=== PATIENT | male | born 1960 | race African-American/Black ===

== ENCOUNTER → 2016-09-24 | Outpatient (CLI) | payer BC ==
[~2016-09-24] MED LIST: LSNUNK
== END | disposition home or self-care (01) ==
LOC: C.RDSM 13:55
PROVIDERS: ATTEND Physical Medicine & Rehabilitation Sports Medicine
DX: M25.562 Pain in left knee (principal)

== ENCOUNTER 2017-01-26 17:47 | Emergency (ER) | payer BC ==
[~2017-01-26] VITALS: Ht 167.6 cm; Wt 72.4 kg
[2017-01-26 17:59] VITALS: BP 125/82; PULSE 74; TEMP 36.6; O2SAT 95; Ht 167.6 cm; Wt 72.4 kg
[2017-01-26] MEDS ORDERED: GELATIN SPONGE 12-7MM EXT ONE (18:15)
[2017-01-26] MEDS ORDERED: DIPHTHERIA/TETANUS/PERTUSSIS 0.5 ML SYR/VIAL IM. ONE ×2 (18:15→18:45)
--- NOTE | 2017-01-26 23:37 | EMERGENCY ROOM VISIT NOTE ---
ED Visit Note First contact with patient: 18:08 CHIEF COMPLAINT: Finger laceration HISTORY OF PRESENT ILLNESS: This 56-year-old male patient presents to the emergency department after cutting the distal right first finger while trying to cut a bagel about 2 hours ago. The bleeding has stopped. Denies weakness or numbness of the finger. The patient has full range of motion of the fingers. The patient rates the pain as dull and 8/10. The patient denies any other injuries. The patient's tetanus shot is not up to date. REVIEW OF SYSTEMS: A 6 system review of systems was completed with positives and pertinent negatives listed in the HPI. ALLERGIES: No known allergies MEDICATIONS: No chronic medications PMH: Otherwise healthy SOCIAL HISTORY: Lives locally PHYSICAL EXAM: Vital Signs: Reviewed Nurse's notes, vital signs stable. GENERAL : Male, in no acute distress, well developed, well nourished. SKIN: There is a 1.0 avulsion type laceration along the distal aspect of the right first finger. The edges gape apart with traction. There is no foreign material in the wound and it looks clean. There is minimal bleeding. No deep structures such as tendons, bones, or significant blood vessels are seen in the base of the wound. Extension and flexion of the finger is full and strong. Full range of motion of the wrist and other fingers. Capillary refill less than 2 seconds. Normal sensation to light and sharp touch. EMERGENCY DEPARTMENT COURSE: I examined the patient. The wound was copiously irrigated under pressure with sterile saline. The wound was explored and there were no deep structures injured. The laceration was repaired using gel foam in a pressure dressing. The patient tolerated the procedure well. Hemostasis was achieved. The patient is not up to date on his tetanus, but prefers to follow with his primary care physician for this. He refuses tetanus here in the emergency department. The patient should follow with his PCP this week and was given wound care instructions as below. He was otherwise invited back to the ER with any new, worsening, or concerning symptoms. Current/Historical Medications Scheduled Lisinopril (Zestril Unknown Dose), DAILY Allergies Coded Allergies: No Known Allergies (Unverified , 01/26/17) Vital Signs Date Time Temp Pulse Resp B/P Pulse Ox O2 Delivery O2 Flow Rate FiO2 01/26/17 17:59 36.6 74 20 125/82 95 Room Air Medications Administered Medications (Trade) Dose Ordered Sig/Iftikhar Route Start Time Stop Time Status Last Admin Dose Admin Gelatin (Surg[place] Sponge 12-7MM (SMALL)) 1 ea NOW ONCE EXT 01/26/17 18:15 01/26/17 18:16 DC 01/26/17 18:15 1 EA Departure Information Impression Primary Impression: Avulsion of fingertip Dispostion Home / Self-Care Condition GOOD Forms HOME CARE DOCUMENTATION FORM, IMPORTANT VISIT INFORMATION Patient Instructions [facility] Additional Instructions You were seen and evaluated today on an emergency basis only. This is not a substitute for, or an effort to provide, complete comprehensive medical care. It is not possible to recognize and treat all injuries or illnesses in a single emergency department visit. For this reason it is recommended that you followup with your primary care physician to discuss her tetanus status. Remove the dressing after about 48 hours. You may apply a bandage after this for 2 more days. After which please leave it open to the air. Monitor for signs of infection such as redness, warmth, or drainage. If this occurs please seek medical attention. You are welcome to return to the emergency department anytime with new, worsening, or concerning symptoms.
== END 2017-01-26 18:57 | disposition home or self-care (01) ==
LOC: C.EDB 17:49 → C.EDD 18:57
DX: S61.210A Laceration without foreign body of right index finger without damage to nail, initial encounter (principal); W26.0XXA Contact with knife, initial encounter; Y93.G1 Activity, food preparation and clean up; Z79.899 Other long term (current) drug therapy

== ENCOUNTER → 2017-02-04 | Outpatient (CLI) | payer BC | END | disposition home or self-care (01) | LOC: C.RDSM 15:33 | PROVIDERS: ATTEND Physical Medicine & Rehabilitation Sports Medicine | DX: M17.32 Unilateral post-traumatic osteoarthritis, left knee (principal) ==

== ENCOUNTER 2019-11-21 10:31 | Observation (INO) ==
[2019-11-21] MEDS ORDERED: ONDANSETRON INJ 2 MG/ML 2 ML VIAL IV STA (11:02)
[2019-11-21] MEDS ORDERED: MoRPHine SULFATE 4 MG/ML 1 ML CARP\\VIAL IV STA (11:02)
[2019-11-21] MEDS ORDERED: SODIUM CHLORIDE 0.9% 1000ML 1,000 ML IV ONE (11:04)
--- NOTE | 2019-11-21 11:11 | Emergency Department Note ---
History of Present Illness General Chief complaint: Groin Pain Stated complaint: STANGULATED HERNIA Time Seen by Provider: 11/21/19 10:51 History of Present Illness Maximum Pain Intensity: 7 59-year-old male who presents to the emergency department with complaint of progressively worsening left inguinal hernia pain and swelling. The patient reports that he saw Dr. Harp last June for this condition. The patient elected observation with as needed follow-up with Dr. Harp with any persistent pain. The patient reports that over the past few months, the swelling has gotten worse without significant pain, although it was intermittent. The patient reports that he walks every morning, and noticed significant discomfort today while walking. He rates his discomfort a 7 out of 10. The patient denies any nausea or vomiting, abdominal pain, constipation or diarrhea. He denies any urinary symptoms. Home Medications Home Medications Medication Instructions Recorded Confirmed Type amlodipine 5 mg tablet 5 mg PO QAM 08/10/19 11/21/19 History chlorthalidone 25 mg PO DAILY 11/21/19 11/21/19 History naproxen sodium [Aleve] 220 mg PO Q12H PRN 11/21/19 11/21/19 History Allergies Allergy/AdvReac Type Severity Reaction Status Date / Time No Known Allergies Allergy Verified 11/21/19 11:06 Past Med/Surg History Medical History Hypertension Left inguinal hernia Surgical History H/O arthroscopy History of arthroscopic knee surgery Status post osteotomy Social History Preferred Language: Uzbek Communication Ability: Effective marital status: 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 Smoking Status: Never smoker Hx Alcohol Use: Yes Hx Substance Use: No Review of Systems 10 system review was performed and was negative except for pertinent positives and negatives as indicated in history of present illness Physical Exam Vital Signs Vital Signs - 24 hr 11/21/19 10:34 11/21/19 12:00 11/21/19 12:19 Temperature 36.5 C Temperature Source Oral Pulse Rate 76 84 83 Respiratory Rate 17 20 23 Respiratory Effort / Characteristics Non-Labored Spontaneous Respiratory Depth Normal Respiratory Pattern Regular Blood Pressure 133/85 134/90 Blood Pressure Mean 101 96 Blood Pressure Position Sitting Pulse Oximetry 97 Oxygen Delivery Method Room Air Sepsis Recent Fever Within 48 Hours No Sepsis New/Unexplained Change in Mental Status No Sepsis Action Taken by Nursing No Action Required 11/21/19 12:27 11/21/19 13:07 Temperature Temperature Source Pulse Rate 85 Respiratory Rate 18 Respiratory Effort / Characteristics Respiratory Depth Respiratory Pattern Blood Pressure 133/88 105/87 Blood Pressure Mean 98 Blood Pressure Position Pulse Oximetry 94 Oxygen Delivery Method Room Air Sepsis Recent Fever Within 48 Hours Sepsis New/Unexplained Change in Mental Status Sepsis Action Taken by Nursing CONSTITUTIONAL: Healthy and well nourished. Patient appears in moderate discomfort. HEENT: Normocephalic, atraumatic. Pupils equal, round and reactive. No scleral icterus or conjunctival injection. NECK: Full active range of motion without discomfort. LYMPHATICS: No obvious inguinal adenopathy. RESPIRATORY: Clear to auscultation bilaterally with no wheezing, crackles, rhonchi or stridor. CARDIOVASCULAR: Regular rate and rhythm with no murmurs, rubs or gallops. GASTROINTESTINAL: Bowel sounds present in all quadrants. Abdomen is generally soft and nontender to palpation except for the left lower quadrant region. GENITOURINARY: Examination shows a large mass within the left mons. No palpable intrascrotal mass. MUSCULOSKELETAL: Full range of motion of all joints without discomfort. INTEGUMENTARY: No rash or other significant dermatologic conditions noted. HEMATOLOGIC: No ecchymosis or petechiae. PSYCHIATRIC: Positive affect. NEUROLOGIC: No focal neurologic deficits noted. Course Course Patient history and physical exam were performed. Nurse's notes were reviewed. Vital signs were reviewed and were normal. IV access was established, and labs are drawn. The patient was hydrated with a liter of normal saline, and administered IV morphine and Zofran for pain. Review of labs did not show any significant abnormalities. CT of the abdomen and pelvis without contrast shows a large left inguinal hernia without obstruction. The case was discussed with Dr. Rodriguez, ED attending physician, who also evaluated the patient and attempted hernia reduction without success. With worsening pain, the patient was administered IV Dilaudid. At this point, the case was discussed with Dr. Harp, general surgeon on-call, who came to the emergency department for further evaluation, and will be taken the patient for surgical treatment. Please see his dictation for further treatment and final d isposition. Administered Medications Cefazolin Sodium (Ancef 2000mg) 2,000 mg in 15 mls @ 3.75 mls/min IV ONCE ONE Stop: 11/21/19 14:43 Last Admin: 11/21/19 13:59 Dose: 3.75 mls/min Documented by: [id number] Discontinued Medications Hydromorphone HCl (Dilaudid) 1 mg IV NOW STA Stop: 11/21/19 12:09 Last Admin: 11/21/19 12:33 Dose: 1 mg Documented by: [id number] Sodium Chloride (Nss 1000ml) 1,000 mls @ 999 mls/hr IV .Q1H1M ONE Stop: 11/21/19 12:04 Last Infusion: 11/21/19 13:05 Dose: 0 mls/hr Documented by: [id number] Admin: 11/21/19 11:30 Dose: 999 mls/hr Documented by: [id number] Morphine Sulfate (Morphine Sulfate) 4 mg IV NOW STA Stop: 11/21/19 11:03 Last Admin: 11/21/19 11:30 Dose: 4 mg Documented by: [id number] Ondansetron HCl (Zofran) 4 mg IV NOW STA Stop: 11/21/19 11:03 Last Admin: 11/21/19 11:30 Dose: 4 mg Documented by: [id number] Medical Decision Making Medical Records Attestation: I reviewed the patient's medical records. Home Medications Current Medication List: was personally reviewed by me Laboratory Data Attestation: I reviewed the patient's lab results. Result diagrams: 11/21/19 11:30 11/21/19 11:30 Lab Results 11/21/19 11/21/19 11/21/19 Range/Units 11:30 11:30 11:30 WBC 5.35 (4.8-10.8) K/uL RBC 4.75 (4.7-6.1) M/uL Hgb 15.0 (14.0-18.0) g/dL Hct 43.2 (42-52) % MCV 90.9 (80-100) fL MCH 31.6 (25-34) pg MCHC 34.7 (32-36) g/dL RDW Std Deviation 40.6 (36.4-46.3) fL RDW Coeff of Eric 12.2 (11.5-14.5) % Plt Count 197 (130-400) K/uL MPV 11.6 H (7.4-10.4) fL Immature Gran % (Auto) 0.2 % Neut % (Auto) 50.2 % Lymph % (Auto) 28.8 % [place] % (Auto) 6.2 % Eos % (Auto) 14.2 % Baso % (Auto) 0.4 % Immature Gran # (Auto) 0.01 (0.00-0.02) K/uL Neut # (Auto) 2.69 (1.4-6.5) K/uL Lymph # (Auto) 1.54 (1.2-3.4) K/uL [place] # (Auto) 0.33 (0.11-0.59) K/uL Eos # (Auto) 0.76 H (0-0.5) K/uL Baso # (Auto) 0.02 (0-0.2) K/uL Sodium 139 (136-145) mmol/L Potassium (3.5-5.1) mmol/L Chloride 105 (98-107) mmol/L Carbon Dioxide 32 (21-32) mmol/L Anion Gap 3.0 (3-11) BUN 17 (7-18) mg/dl Creatinine 1.00 (0.6-1.4) mg/dl Est Cr Clr Drug Dosing 69.2 ml/min Est GFR ( Amer) 95.1 Est GFR (Non-Af Amer) 82.0 BUN/Creatinine Ratio 16.8 (10-20) Glucose 102 H (70-99) mg/dl Lactate 0.9 (0.4-2.0) mmol/L Calcium 9.2 (8.5-10.1) mg/dl Total Bilirubin 1.3 H (0.2-1) mg/dl AST (15-37) U/L ALT 24 (12-78) U/L Alkaline Phosphatase 69 (45-117) U/L Total Protein 8.0 (6.4-8.2) gm/dl Albumin 3.9 (3.4-5.0) gm/dl Globulin 4.1 H (2.5-4.0) gm/dl Albumin/Globulin Ratio 1.0 (0.9-2) Imaging Data Attestation: I personally reviewed and interpreted this imaging study as follows: My Impression: My interpretation of a CT of the abdomen and pelvis without IV contrast shows evidence for a large left inguinal hernia. No obvious obstructive findings. Radiologist report was also reviewed. Radiologist's Impression: ABDOMEN AND PELVIS CT WITHOUT CONTRAST CT DOSE: 281.75 mGy.cm HISTORY: Left inguinal pain and swelling. L inguinal hernia - possible strangulated TECHNIQUE: Multiaxial CT images of the abdomen and pelvis were performed without contrast. A dose lowering technique was utilized adhering to the principles of ALARA. COMPARISON STUDY: None. FINDINGS: The lung bases are clear. No pneumoperitoneum. No pneumatosis. No suspicious lytic are blastic osseous lesions. The unenhanced liver, gallbladder, spleen, adrenal glands, and pancreas are unremarkable. No renal or ureteral stones. No hydronephrosis. No retroperitoneal lymphadenopathy. Normal caliber abdominal aorta. Tiny fat-containing umbilical hernia. The bladder is unremarkable. Normal appendix. A long segment of the proximal sigmoid colon is seen within the moderate left inguinal hernia. This also trace fluid within the left inguinal hernia. There is suboptimal evaluation for bowel pathology due to the lack of intravenous and oral contrast. However, there is no evidence for bowel obstruction. There are a few colonic diverticula. Questionable mild t hickening of the segment of proximal sigmoid colon within the left inguinal hernia. This could be due to the decompression or developing inflammatory process such as a diverticulitis. Vascular compromise of the bowel loop could also have a similar appearance. Clinical correlation recommended. Normal bladder. IMPRESSION: 1. A long segment of the proximal sigmoid colon is seen within the moderate left inguinal hernia. This also trace fluid within the left inguinal hernia. No evidence for bowel obstruction. 2. Questionable mild thickening of the segment of proximal sigmoid colon within the left inguinal hernia. This could be due to the decompression or developing inflammatory process such as a diverticulitis. Vascular compromise of the bowel loop could also have a similar appearance. Clinical correlation recommended. Blood Pressure Blood Pressure Findings: Normal blood pressure MDM Narrative Patient has a known history of left inguinal hernia that was initially being treated with conservative management. The patient reports that he has had increasing swelling and pain, with abrupt onset of pain while walking this morning. Patient currently does not have any nausea, vomiting or CT studies to suggest bowel obstruction. Impression & Plan Incarcerated left inguinal hernia Discharge Plan Visit Data *Final* Discharge Date/Time: 11/21/19 13:14 Chief Complaint: Groin Pain Stated Complaint: STANGULATED HERNIA ED Provider: Emre Rodriguez ED Midlevel Provider: Srnii Welsh Discharge Problem: Incarcerated left inguinal hernia Patient Disposition: Admitted As Inpatient Discharge Instructions Interventions: ED Discharge Assessment Last Done: 11/21/19 13:07
[2019-11-21 11:41] LABS: Basophils # (auto) 0.02 K/uL (0-0.2); Basophils % (auto) 0.4 %; Eosinophils # (auto) 0.76 K/uL (0-0.5); Eosinophils % (auto) 14.2 %; Hematocrit (blood only) 43.2 % (42-52); Immature Granulocytes # (auto) 0.01 K/uL (0.00-0.02); Immature Granulocytes % (auto) 0.2 %; Lymphocytes # (auto) 1.54 K/uL (1.2-3.4); Lymphocytes % (auto) 28.8 %; Mean Corpuscular Hemoglobin 31.6 pg (25-34); Mean Corpuscular Hgb Conc 34.7 g/dL (32-36); Mean Corpuscular Volume 90.9 fL (80-100); Mean Platelet Volume 11.6 fL (7.4-10.4); Monocytes # (auto) 0.33 K/uL (0.11-0.59); Monocytes % (auto) 6.2 %; Neutrophils # (auto) 2.69 K/uL (1.4-6.5); Neutrophils % (auto) 50.2 %; Platelet Count 197 K/uL (130-400); RDW Coefficient of Variation 12.2 % (11.5-14.5); RDW Standard Deviation 40.6 fL (36.4-46.3); Red Blood Count 4.75 M/uL (4.7-6.1); White Blood Count 5.35 K/uL (4.8-10.8)
--- NOTE | 2019-11-21 11:58 | CT Scan Report ---
ABDOMEN AND PELVIS CT WITHOUT CONTRAST CT DOSE: 281.75 mGy.cm HISTORY: Left inguinal pain and swelling. L inguinal hernia - possible strangulated TECHNIQUE: Multiaxial CT images of the abdomen and pelvis were performed without contrast. A dose lo wering technique was utilized adhering to the principles of ALARA. COMPARISON STUDY: None. FINDINGS: The lung bases are clear. No pneumoperitoneum. No pneumatosis. No suspicious lytic are arleen tic osseous lesions. The unenhanced liver, gallbladder, spleen, adrenal glands, and pancreas are unre markable. No renal or ureteral stones. No hydronephrosis. No retroperitoneal lymphadenopathy. Normal caliber abdominal aorta. Tiny fat-containing umbilical hernia. The bladder is unremarkable. Normal ap pendix. A long segment of the proximal sigmoid colon is seen within the moderate left inguinal hernia . This also trace fluid within the left inguinal hernia. There is suboptimal evaluation for bowel pat hology due to the lack of intravenous and oral contrast. However, there is no evidence for bowel obst ruction. There are a few colonic diverticula. Questionable mild thickening of the segment of proximal sigmoid colon within the left inguinal hernia. This could be due to the decompression or developing inflammatory process such as a diverticulitis. Vascular compromise of the bowel loop could also have a similar appearance. Clinical correlation recommended. Normal bladder. IMPRESSION: 1. A long segment of the proximal sigmoid colon is seen within the moderate left inguinal hernia. Thi s also trace fluid within the left inguinal hernia. No evidence for bowel obstruction. 2. Questionable mild thickening of the segment of proximal sigmoid colon within the left inguinal her joce. This could be due to the decompression or developing inflammatory process such as a diverticulit is. Vascular compromise of the bowel loop could also have a similar appearance. Clinical correlation recommended. ACT 112: Negative or not required by law. Electronically signed by: Juaquin Maher M.D. 11/21/2019 11:56 AM
[2019-11-21 12:02] LABS: Albumin Level 3.9 gm/dl (3.4-5.0); BUN Creatinine Ratio 16.8 (10-20); Bilirubin,Total 1.3 mg/dl (0.2-1); Calcium 9.2 mg/dl (8.5-10.1); Creatinine Clr Calc Pharmacy 69.2 ml/min; Est GFR (African American) 95.1; Globulin 4.1 gm/dl (2.5-4.0)
[2019-11-21] MEDS ORDERED: HYDROmorphone INJ 1 MG/ML SYRINGE IV STA (12:08)
--- NOTE | 2019-11-21 13:16 | History & Physical Report ---
Date of Service November 21, 2019 Assessment & Plan (1) Incarcerated left inguinal hernia: 59-year-old male with incarcerated left inguinal hernia, plan for repair Plan for laparoscopic left inguinal hernia repair, possible open, possible bowel The risks of the procedure were discussed to include but not limited to bleeding, infection, recurrence, damage surrounding structures, need for future more extensive surgery, chronic pain, injury to bowel, and the risk of anesthesia The diagnosis, details of the procedure and recovery, treatment options, and plan of care discussed with the patient, all questions were answered, the patient expressed understanding agrees to proceed with surgery as planned (2) Hypertension: History of Present Illness Primary Care Provider: Alpesh Christiansen MD 59-year-old male known to me from prior evaluation of asymptomatic left inguinal hernia presented to the emergency department with increased pain and a firm bulge in his left groin. As he was asymptomatic at his appointment in the past, he elected for observation. This morning he was walking and after returning from his walk he noticed that the bulge was larger, more firm, and painful. He denies any nausea or vomiting. Last bowel movement was yesterday at noon. The ER attempted to reduce it but were unsuccessful. CT scan showed sigmoid colon and an incarcerated hernia with some fluid, no evidence of obstruction, and possible thickening of the sigmoid colon wall. No other changes since his last visit. He is otherwise healthy and does not take any blood thinners. Allergies Allergy/AdvReac Type Severity Reaction Status Date / Time No Known Allergies Allergy Verified 11/21/19 11:06 Home Medications Home Medications Medication Instructions Recorded Confirmed Type amlodipine 5 mg tablet 5 mg PO QAM 08/10/19 11/21/19 History chlorthalidone 25 mg PO DAILY 11/21/19 11/21/19 History naproxen sodium [Aleve] 220 mg PO Q12H PRN 11/21/19 11/21/19 History Past Med/Surg History Medical History Hypertension Left inguinal hernia Surgical History H/O arthroscopy History of arthroscopic knee surgery Status post osteotomy Social History Preferred Language: Bruneian Communication Ability: Effective marital status: 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 Smoking Status: Never smoker Hx Alcohol Use: Yes Hx Substance Use: No Review of Systems 2 Review of Systems: All systems reviewed & are unremarkable except as noted in HPI & below Physical Exam Constitutional: WD/WN, vitals as above Eyes: PERRL, conjunctivae normal, anicteric sclerae ENMT: external ear and nose normal, oropharynx normal Neck: trachea midline, no thyromegaly Respiratory: normal respiratory effort, lungs clear to auscultation Cardiovascular: RRR, no murmur, no edema Gastrointestinal (Abdomen): Percussion/Palpation: + abdomen tender, abdomen soft and + hernia (Incarcerated left inguinal hernia, tender to palpation and unable to reduce, no erythema or evidence of strangulation); no guarding, abdomen not rigid and no hepatosplenomegaly Musculoskeletal: no cyanosis or clubbing, extremities motor strength 5/5 Skin: no rashes, warm and dry Neurologic: PERRL, EOMI, accommodation nl, no face palsy, no dysarthria Psychiatric: A+Ox3, euthymic affect Genitourinary: no testicular masses, no penis abnormality Lymphatic: no cervical or axillary lymphadenopathy Results & Data Vital Signs (Past 12 Hours) Vital Signs Temp Pulse Resp BP Pulse Ox 11/21/19 13:07 85 18 105/87 94 11/21/19 12:27 133/88 11/21/19 12:19 83 23 11/21/19 12:00 84 20 134/90 11/21/19 10:34 36.5 C 76 17 133/85 97 Laboratory Results Laboratory Results - last 24 hr 11/21/19 11/21/19 11/21/19 11:30 11:30 11:30 WBC 5.35 RBC 4.75 Hgb 15.0 Hct 43.2 MCV 90.9 MCH 31.6 MCHC 34.7 RDW Std Deviation 40.6 RDW Coeff of Eric 12.2 Plt Count 197 MPV 11.6 H Immature Gran % (Auto) 0.2 Neut % (Auto) 50.2 Lymph % (Auto) 28.8 [place] % (Auto) 6.2 Eos % (Auto) 14.2 Baso % (Auto) 0.4 Immature Gran # (Auto) 0.01 Neut # (Auto) 2.69 Lymph # (Auto) 1.54 [place] # (Auto) 0.33 Eos # (Auto) 0.76 H Baso # (Auto) 0.02 Sodium 139 Potassium Chloride 105 Carbon Dioxide 32 Anion Gap 3.0 BUN 17 Creatinine 1.00 Est Cr Clr Drug Dosing 69.2 Est GFR ( Amer) 95.1 Est GFR (Non-Af Amer) 82.0 BUN/Creatinine Ratio 16.8 Glucose 102 H Lactate 0.9 Calcium 9.2 Total Bilirubin 1.3 H AST ALT 24 Alkaline Phosphatase 69 Total Protein 8.0 Albumin 3.9 Globulin 4.1 H Albumin/Globulin Ratio 1.0 Diagnostic Findings ABDOMEN AND PELVIS CT WITHOUT CONTRAST CT DOSE: 281.75 mGy.cm HISTORY: Left inguinal pain and swelling. L inguinal hernia - possible strangulated TECHNIQUE: Multiaxial CT images of the abdomen and pelvis were performed without contrast. A dose lowering technique was utilized adhering to the principles of ALARA. COMPARISON STUDY: None. FINDINGS: The lung bases are clear. No pneumoperitoneum. No pneumatosis. No suspicious lytic are blastic osseous lesions. The unenhanced liver, gallbladder, spleen, adrenal glands, and pancreas are unremarkable. No renal or ureteral stones. No hydronephrosis. No retroperitoneal lymphadenopathy. Normal caliber abdominal aorta. Tiny fat-containing umbilical hernia. The bladder is unremarkable. Normal appendix. A long segment of the proximal sigmoid colon is seen within the moderate left inguinal hernia. This also trace fluid within the left inguinal hernia. There is suboptimal evaluation for bowel pathology due to the lack of intravenous and oral contrast. However, there is no evidence for bowel obstruction. There are a few colonic diverticula. Questionable mild thickening of the segment of proximal sigmoid colon within the left inguinal hernia. This could be due to the decompression or developing inflammatory process such as a diverticulitis. Vascular compromise of the bowel loop could also have a similar appearance. Clinical correlation recommended. Normal bladder. IMPRESSION: 1. A long segment of the proximal sigmoid colon is seen within the moderate left inguinal hernia. This also trace fluid within the left inguinal hernia. No evidence for bowel obstruction. 2. Questionable mild thickening of the segment of proximal sigmoid colon within the left inguinal hernia. This could be due to the decompression or developing inflammatory process such as a diverticulitis. Vascular compromise of the bowel loop could also have a similar appearance. Clinical correlation recommended. PG Care Time/CCT Total # of Minutes Spent Total Time Spent with Patient: Total time spent is greater than 50% in coordination of care (as documented) at patient's floor/unit and/or counseling patient: Coding Level of Care Code 04021 Initial Inpt Care Lvl 2 Diagnoses Incarcerated left inguinal hernia K40.30 Hypertension I10
--- NOTE | 2019-11-21 13:23 | Anesthesiology Consultation ---
Date of Service November 21, 2019 Assessment & Plan Chart Review Chart Review: Acceptable Risk for Surgery Consults Requested none History Surgery Operation Date: 11/21/19 13:30 Proposed Procedures p Laparoscopic Inguinal Hernia Repair - Remington Harp DO, FACS Height/Weight Height: 5 ft 5 in Weight: 68.5 kg Allergies Allergy/AdvReac Type Severity Reaction Status Date / Time No Known Allergies Allergy Verified 11/21/19 11:06 Medications Home Medications Medication Instructions Recorded Confirmed Last Taken amlodipine 5 mg tablet 5 mg PO QAM 08/10/19 11/21/19 11/20/19 chlorthalidone 25 mg PO DAILY 11/21/19 11/21/19 11/20/19 naproxen sodium [Aleve] 220 mg PO Q12H PRN 11/21/19 11/21/19 11/20/19 13:00 220 mg Past Medical History Medical History Hypertension Left inguinal hernia Past Surgical History Surgical History H/O arthroscopy History of arthroscopic knee surgery Status post osteotomy Social History Smoking Status: Never smoker Hx Alcohol Use: Yes Hx Substance Use: No Physical Exam Vital Signs Last Vital Signs Temp 36.5 C 11/21/19 10:34 Pulse 85 11/21/19 13:07 Resp 18 11/21/19 13:07 BP 105/87 11/21/19 13:07 Pulse Ox 94 11/21/19 13:07 Testing Laboratory Results 11/21/19 11:30 11/21/19 11:30
[2019-11-21] MEDS ORDERED: ePHEDrine sulfate 50 MG/ML AMP IV PRN (13:25)
[2019-11-21] MEDS ORDERED: ATROPINE SULFATE 0.1 MG/ML 10ML SYR IV PRN (13:25)
[2019-11-21] MEDS ORDERED: PROMETHAZINE HCL 12.5 MG in SODIUM CHLORIDE 0.9% 50 ML IV PRN (13:25)
[2019-11-21] MEDS ORDERED: METOCLOPRAMIDE HCL INJ 5 MG/ML 2 ML VIAL IV PRN (13:25)
[2019-11-21] MEDS ORDERED: fentaNYL citrate 100 MCG/2 ML VIAL IV PRN (13:25)
[2019-11-21] MEDS ORDERED: HYDROmorphone INJ 2 MG/ML SYR/VIAL IV PRN (13:25)
[2019-11-21] MEDS ORDERED: ONDANSETRON INJ 2 MG/ML 2 ML VIAL IV PRN ×2 (13:25→16:45)
[2019-11-21] MEDS ORDERED: MIDAZOLAM HCL 1 MG/ML 2ML VIAL ONE (13:46)
[2019-11-21] MEDS ORDERED: CEFAZOLIN 250 MG/ML 1 GM VIAL ONE (13:46)
[2019-11-21] MEDS ORDERED: LIDOCAINE HCL 2% 2 ML VIAL/AMP(20MG/ML) INFIL ONE (13:46)
[2019-11-21] MEDS ORDERED: fentaNYL citrate 100 MCG/2 ML VIAL ONE (13:46)
[2019-11-21] MEDS ORDERED: ROCURONIUM BROMIDE 10 MG/ML 5 ML VIAL ONE (13:46)
[2019-11-21] MEDS ORDERED: PROPOFOL IV EMULSION 10 MG/ML 20 ML VIAL IV ONE (13:46)
[2019-11-21] MEDS ORDERED: BUPIVACAINE 0.5 % 5 MG/1 ML MPF 30ML VIAL ONE (13:47)
[2019-11-21] MEDS ORDERED: ONDANSETRON INJ 2 MG/ML 2 ML VIAL ONE (14:37)
[2019-11-21] MEDS ORDERED: GLYCOPYRROLATE 0.2 MG/ML VIAL ONE (14:37)
[2019-11-21] MEDS ORDERED: NEOSTIGMINE METHYLSULFATE 5 MG/5 ML SYR ONE (14:37)
[2019-11-21] MEDS ORDERED: CEFAZOLIN 2000MG 2,000 MG/15 ML SYR IV ONE (14:40)
--- NOTE | 2019-11-21 15:28 | Operative Report ---
PG Post Operative Report Pre & Post Diagnosis Operation Date: 11/21/19 13:30 Pre-Op Diagnosis: Incarcerated LEFT INGUINAL HERNIA, concern for strangulation Post-Op Diagnosis: Incarcerated LEFT INGUINAL HERNIA I identified the patient and participated in the time-out.: Yes Procedure Operation Date: 11/21/19 13:30 Laparoscopic left inguinal hernia repair, incarcerated Surgeon Remington Harp DO, FACS Mixer Crane Operator Arabella Carbone Estimated Blood Loss 5 Findings Consistent with Post-Op Diagnosis Sigmoid colon incarcerated within left inguinal hernia, diagnostic laparoscopy performed and hernia reduced, bowel viable. Totally extraperitoneal left inguinal hernia repair performed with pro-mill hand mesh. Specimens None Anesthesia Type General Complications none Disposition Accompanied Patient To Recovery: No Disposition: Recovery Room Indications 59-year-old male with known left inguinal hernia presented with incarcerated left inguinal hernia and concern for early signs of strangulation on CT, plan for laparoscopic left inguinal hernia repair, possible open, possible bowel resection. The risks of the procedure were discussed, all questions were answered, and the patient agreed to proceed with surgery as planned. Description of Procedure The patient was properly identified, consented, and taken to the operating room where he was placed in the supine position. General endotracheal anesthesia was induced. SCDs and a safety belt were placed. A bae catheter was placed. Preoperative antibiotics were administered. The patient's groins and abdomen were prepped and draped in the standard sterile fashion. Surgical timeout was performed and all parties were in agreement that this was the correct patient and procedure to be performed and we continued as planned. An incision was made in the right upper quadrant and the Veress needle was inserted. Saline drop test confirmed entry into the abdomen. The abdomen was insufflated with carbon dioxide which the patient tolerated without incident. Using the Optiview technique and a 5 mm port we entered the abdomen. The abdomen was inspected and no damage from initial trocar placement was noted. An additional 5 mm port was placed in the left upper quadrant. The patient was placed in Trendelenburg position. The sigmoid colon was seen entering into a left inguinal hernia. Utilizing gentle traction and external pressure we were able to eventually reduce the bowel from the inguinal hernia. This was inspected and the bowel was viable and there was no evidence of injury. At this point we elected to proceed with a laparoscopic totally extraperitoneal repair. A transverse infraumbilical incision was made to the right of midline with electrocautery and deepened down to the fascia with blunt dissection. A transverse incision was made in the anterior rectus sheath on the right. The rectus muscle was pulled laterally exposing the posterior rectus sheath. A large Maria Del Rosario was used to bluntly dissect the preperitoneal space down to the pubic symphysis. This was then replaced with a laparoscopic preperitoneal dissection balloon, which was inflated under direct visualization and held in place for approximately 30 seconds. This was then removed and the preperitoneal space was insufflated with carbon dioxide which the patient tolerated without incident. Two 5 mm ports were then placed in the midline. Dissection started on the left, beginning laterally at the anterior superior iliac spine. Nate's ligament was then dissected medially. The cord structures were circumferentially dissected. A large indirect inguinal hernia was noted. It was dissected away from the cord structures. We did not examine the contralateral side. During the dissection a small tear in the peritoneum occurred which was closed with 5 mm clips. Progrip mesh was placed on the left and covered the direct, indirect, and femoral spaces. The mesh was held in place, the ports were removed, and the space was allowed to collapse. We then reentered the abdomen laparoscopically. The hernia defect was now fixed. The colon was reexamined and appeared healthy and viable with no injury. The abdomen was then allowed to collapse and the 5 mm ports were removed. The anterior rectus sheath fascia was closed with 0 Vicryl suture. The skin of all port sites were closed with 4-0 Monocryl subcuticular suture, and Dermabond was placed over the incisions. The patient was extubated in the operating room and taken to the PACU for recovery without apparent incident. Any air in the scrotum was reduced, and the testicles were confirmed to be in the scrotum. All sponge, instrument, and needle counts were correct at the conclusion of the procedure. The patient tolerated the procedure well. The physician's assignment desk assistant was present and scrubbed for the entire to the case. She was critical in positioning the patient, prepping and draping, retraction and exposure, driving the laparoscope, repair the hernia, closure the incisions, and placement of the dressings. I attest to the content of the Intraoperative Record and any orders documented therein. Any exceptions are noted below.
--- NOTE | 2019-11-21 16:32 | Anesthesiology Progress Note ---
Date of Service November 21, 2019 Anesthesia Post Procedure Vital Signs Vital Signs: Temp Pulse Pulse Resp BP BP Pulse Ox 11/21/19 16:15 36.4 C L 64 15 128/86 100 11/21/19 16:05 60 13 126/79 100 11/21/19 15:55 58 L 14 125/78 100 11/21/19 15:45 59 L 14 127/79 100 11/21/19 15:37 36.0 C L 70 14 115/80 100 11/21/19 13:07 85 18 105/87 94 11/21/19 12:27 133/88 11/21/19 12:19 83 23 11/21/19 12:00 84 20 134/90 11/21/19 10:34 36.5 C 76 17 133/85 97 Pain Intensity Left Groin: Pain Intensity: 7 Transfer of Care Handoff Completed per policy Notes Mental Status: alert / awake / arousable and participated in evaluation Patient Amnestic to Procedure: Yes Nausea / Vomiting: adequately controlled Pain: adequately controlled Airway Patency, RR, SpO2: stable & adequate BP & HR: stable & adequate Hydration State: stable & adequate Anesthetic Complications: no major complications apparent
[2019-11-21] MEDS ORDERED: MoRPHine SULFATE 4 MG/ML 1 ML CARP\\VIAL IV PRN ×2 (16:45)
[2019-11-21] MEDS ORDERED: OXYCODONE/ACETAMINOPHEN 5mg/325mg TAB PO PRN ×2 (16:45)
[2019-11-21] MEDS ORDERED: MoRPHine SULFATE 2 MG/ML CARP IV PRN (16:50)
[2019-11-21] MEDS: LACTATED RINGER'S 1,000 ML IV SCH (18:29)
[2019-11-22 04:18] LABS: Appearance Urine Clear (Clear); Bilirubin Urine Negative (Negative); Blood Urine Negative (Negative); Color Urine Yellow; Glucose Urine UA Negative (Negative); Ketones Urine Trace (Negative); Leukocyte Esterase Urine Negative (Negative); Nitrite Urine Negative (Negative); Protein Urine Negative (Negative); Urobilinogen Urine Negative (Negative)
[2019-11-22 05:32] LABS: Hematocrit (blood only) 37.3 % (42-52); Hemoglobin 13.1 g/dL (14.0-18.0); Mean Corpuscular Hemoglobin 32.2 pg (25-34); Mean Corpuscular Hgb Conc 35.1 g/dL (32-36); Mean Corpuscular Volume 91.6 fL (80-100); Mean Platelet Volume 11.4 fL (7.4-10.4); Platelet Count 223 K/uL (130-400); RDW Coefficient of Variation 12.1 % (11.5-14.5); RDW Standard Deviation 40.9 fL (36.4-46.3); Red Blood Count 4.07 M/uL (4.7-6.1); White Blood Count 7.47 K/uL (4.8-10.8)
[2019-11-22] MEDS: LACTATED RINGER'S 1,000 ML IV SCH (05:43)
[2019-11-22 05:59] LABS: BUN Creatinine Ratio 11.7 (10-20); Calcium 8.8 mg/dl (8.5-10.1); Creatinine Clr Calc Pharmacy 81.4 ml/min; Est GFR (African American) 110.5; Est GFR (Non-African American) 95.4; Potassium 2.8 mmol/L (3.5-5.1)
[2019-11-22] MEDS ORDERED: AMLODIPINE BESYLATE 5 MG TAB PO SCH (09:00)
--- NOTE | 2019-11-22 10:51 | Surgery Progress Note ---
Date of Service November 22, 2019 Assessment & Plan (1) Incarcerated left inguinal hernia: POD #1 s/p Laparoscopic left inguinal hernia repair. He is doing well. Pain is well-controlled. Incisions are clean, dry, intact with Dermabond in place. He is tolerating a regular diet and voiding on own. Ok for discharge to home today. Discharge instructions reviewed with patient. Supervising Physician Co-Signing Physician Notes Patient seen and examined, agree with above. POD #1 laparoscopic left inguinal hernia repair for incarcerated left inguinal hernia with bowel obstruction. Doing well, minimal pain, symptoms resolved. Incisions clean dry and intact with Dermabond, no evidence of infection. No evidence of recurrent hernia. Okay to DC to home, wound care instructions and activity restrictions reviewed. Follow-up in 10 to 14 days, will likely call in prior to the appointment if he is doing well he will not need follow-up in the clinic. Subjective Patient is resting comfortably in bed. He reports that his pain is minimal. He is tolerating a regular diet. Voiding on own without issue. Physical Exam Physical Exam: Surgical incisions are clean, dry, intact, well-approximated. Dermabond in place. No signs of infection or evidence of dehiscence. Results & Data Vital Signs (Past 12 Hours) Vital Signs Temp Pulse Resp BP Pulse Ox 11/22/19 08:59 124/69 11/22/19 07:31 36.9 C 70 16 118/72 98 11/22/19 04:11 37 C 66 18 112/71 97 11/21/19 23:05 37 C 64 16 131/71 96 PG Care Time/CCT Total # of Minutes Spent Total Time Spent with Patient: Total time spent is greater than 50% in coordination of care (as documented) at patient's floor/unit and/or counseling patient: Coding Level of Care Code 91004 Subseq Obs Care Lvl 1 Diagnoses Incarcerated left inguinal hernia K40.30
--- NOTE | 2019-11-23 14:00 | Discharge Summary ---
Date of Service November 23, 2019 Admission HPI Per Admitting Provider 59-year-old male known to me from prior evaluation of asymptomatic left inguinal hernia presented to the emergency department with increased pain and a firm bulge in his left groin. As he was asymptomatic at his appointment in the past, he elected for observation. This morning he was walking and after returning from his walk he noticed that the bulge was larger, more firm, and painful. He denies any nausea or vomiting. Last bowel movement was yesterday at noon. The ER attempted to reduce it but were unsuccessful. CT scan showed sigmoid colon and an incarcerated hernia with some fluid, no evidence of obstruction, and possible thickening of the sigmoid colon wall. No other changes since his last visit. He is otherwise healthy and does not take any blood thinners. Principal Diagnosis Incarcerated left inguinal hernia Discharge Exam incisions c/d/i, dermabond overtop Discharge Data Allergies Allergy/AdvReac Type Severity Reaction Status Date / Time No Known Allergies Allergy Verified 11/21/19 11:06 Consultations 11/21/19 12:08 Consult General Surgery Stat Procedures Performed Operation Date: 11/21/19 13:30 Actual Procedures p Laparoscopic Inguinal Hernia Repair(Left) - Remington Harp, DO, FACS Ordered Studies 11/21/19 11:06 CT abd pelvis wo con Stat Hospital Course (1) Incarcerated left inguinal hernia: This is a 59y M who presented to the [facility] ED on 11/21/19 with complaints of an enlarged bulge in his left groin. Patient was known to have a left inguinal hernia that he saw surgery for in the past, which at that time was asymptomatic and pt elected observation. On 11/20 patient noticed that after his walk he had an enlarged and painful bulge in the groin of which he presented to the ED for evaluation. A CT was obtained revealing a segment of sigmoid colon within the hernia. It was unable to be reduced at bedside, limited to pain and patient opted to undergo surgical intervention. On 11/20 the patient was taken to the OR and underwent laparoscopic repair of incarcerated left inguinal hernia with Dr. Harp. The patient tolerated the procedure well, see op note for full details. The patient recovered in the PACU and was transferred to the surgical floor in stable condition for overnight observation. Post operatively the patient was able to void without issues, diet was advanced as tolerated, and pain managed with prn medication. Patient continued to progress well postoperatively and surgical incisions remained clean and intact. On POD#1 the patient was deemed stable for discharge to home. He was given discharge instructions and asked to call the office within 2 weeks for follow up. Total Time Total Time Spent Total Time Spent (In Minutes): 15 Discharge Plan Discharge Items Patient Disposition: Home - Self-Care Reason For Visit: STANGULATED HERNIA Discharge Diagnosis: left inguinal hernia repair Activity: Per Instructions section Lifting: No more than 10 pounds Bathing Comment: may shower; no soaking in tubs Exercise/Sports: Wait until after follow-up appointment Driving/Machine Use: Resume 3 days after discharge Non-emergency contact: Surgeon Call non-emergency contact if: you have any medication questions, your symptoms worsen, your pain is not controlled, your pain is worsening, your pain is unusual for you, you have a fever, your temperature is above 101.5, your wound has increased redness, your wound has increased drainage and your wound pain has increased Follow-up/Referrals: Remington Harp, EMILY ALEXANDER [Physician] - (Please call the office to schedule a follow up appointment within 2 weeks We will call patient Saturday with appointment time and date) Alpesh Christiansen MD [Primary Care Provider] - Diet: Regular Addtl Attending Provider Instructions: Pending Studies at Discharge: No Stand-Alone Forms: [facility], Opioid Pain Management Medications and DC Order Prescriptions: New oxycodone-acetaminophen [Percocet] 5-325 mg tablet 1 - 2 tab PO .q4-6h PRN (Reason: pain, for initial therapy, max 6 tabs per day) Qty: 15 RF: 0 Continued amlodipine 5 mg tablet 5 mg PO QAM RF: 0 chlorthalidone 25 mg tablet 25 mg PO DAILY RF: 0 naproxen sodium [Aleve] 220 mg Tablet 220 mg PO Q12H PRN (Reason: Pain) RF: 0 Discharge Orders: Discharge Order (Routine); Ordered 11/22/19 Ordered By: Jihan Kahn/Other Patient Handouts: Acetaminophen Oxycodone tablets Admission Data Admit Date/Time: 11/21/19 15:37 Attending Provider: Remington Harp Admit Provider: Remington Harp Primary Care Provider: Alpesh Christiansen Other Interventions: Discharge Summary Assessment (RN) Last Done: 11/22/19 11:58 DC Date/Time DO NOT enter until pt leaves facility: 11/22/19 13:00 Coding Level of Care Code D/C Day Management <30 mins Diagnoses Incarcerated left inguinal hernia K40.30
== END 2019-11-22 13:00 | disposition home or self-care (01) ==
LOC: ED 10:31 → 3W 13:07 → ASU 13:07

== ENCOUNTER 2020-05-11 08:45 | Observation (INO) ==
--- NOTE | 2020-04-12 12:48 | PAT Medication Instructions ---
Medication Instructions Date of Service April 12, 2020 Home Medications amlodipine 5 mg tablet 5 mg PO QAM chlorthalidone 25 mg PO QAM naproxen sodium [Aleve] 220 mg PO Q12H PRN cholecalciferol (vitamin D3) [Vitamin D3] 25 mcg PO QAM ASK your surgeon for instructions naproxen sodium [Aleve] 220 mg PO Q12H PRN DO NOT take the morning of surgery chlorthalidone 25 mg PO QAM cholecalciferol (vitamin D3) [Vitamin D3] 25 mcg PO QAM Take morning of surgery With a small sip of water, OTHERWISE NOTHING TO EAT OR DRINK AFTER MIDNIGHT: amlodipine 5 mg tablet 5 mg PO QAM Other Notes If you have any questions please call us at [phone] or [phone] or [phone] or [phone]
--- NOTE | 2020-04-14 09:51 | Anesthesiology Consultation ---
Date of Service April 14, 2020 Assessment & Plan (1) Encounter for pre-operative examination: Chart Review Chart Review: Acceptable Risk for Surgery (pending preop Covid testing) and Patient seen in Pre Admission Testing Per PAT appt 04/14/20, no recent travel. Resides in [facility]. Wears mask in public. Educated patient to follow up with surgeon's office regarding Covid testing. Educated on importance of self quarantining, social distancing and wearing mask in public both for the patient and household contacts. Lap Left Inguinal Hernia Repair 11/21/19= Done under [place] - Grade 1 view with MAC #3. No issues per anesthesia record Teaching & Discussion Pre-Anesthesia Teaching/Discussion Notes: Instructed NPO after midnight before surgery,except medications with 15 cc of water. Medication instructions provided according to the PAT guidelines. History Surgery Operation Date: 05/11/20 10:55 Proposed Procedures p Left Total Knee Arthroplasty and Hardware Removal - Alon Maxwell MD Height/Weight Height: 5 ft 6 in Weight: 68.5 kg Allergies Allergy/AdvReac Type Severity Reaction Status Date / Time No Known Allergies Allergy Verified 04/14/20 08:05 Medications Home Medications Medication Instructions Recorded Confirmed Last Taken amlodipine 5 mg tablet 5 mg PO QAM 08/10/19 04/14/20 11/20/19 chlorthalidone 25 mg PO QAM 11/21/19 04/14/20 11/20/19 naproxen sodium [Aleve] 220 mg PO Q12H PRN 11/21/19 04/14/20 11/20/19 13:00 220 mg cholecalciferol (vitamin D3) 25 mcg PO QAM 04/07/20 04/14/20 Unknown [Vitamin D3] Past Medical History Medical History Borderline high cholesterol Hypertension Osteoarthritis Exercise / Class Metabolic Activity II 4-5 Yardwork/Stairs/Walk up hill (one flight of stairs - no chest pain or SOB ) Past Family History Family History Other No significant family history Past Surgical History Surgical History History of arthroscopic knee surgery LEFT History of colonoscopy History of left inguinal hernia repair History of tooth extraction Status post osteotomy Past Anesthesia History No Hx of Anesthesia Complications and No Family Hx of Anesthesia Complications History of PONV No Hx of PONV and No Hx of Motion Sickness Social History Smoking Status: Never smoker Do You Dip or Chew Tobacco: No Hx Alcohol Use: Yes Alcohol type: wine alcohol intake frequency: a few times a month Hx Substance Use: No Review of Systems Patient denies chest pain, shortness of breath, dyspnea on exertion, reflux, cough, wheezing, palpitations. No hx of seizures, stroke, [place], apnea/snoring. No hx of blood clots or blood transfusions Physical Exam Vital Signs VITALS BP 126/78 P 73 TEMP 98.2 SP02 100% RESP 16 Constitutional no acute distress ENMT Mouth: no TMJ clicking Thyromental Distance: > or= 3.5 Finger Breadths (3.5) Mallampati Class: III Denies loose or missing teeth. No caps or crowns Neck neck extension not limited Respiratory normal respiratory effort; no respiratory distress Auscultation: lungs clear to auscultation bilaterally; no wheezes Cardiovascular Rate/Rhythm: regular rate and regular rhythm Heart Sounds: no murmur Vessels: no carotid bruit Musculoskeletal Spine: no pain with cervical ROM Neurologic moves all extremities Psychiatric Orientation: alert Testing Laboratory Results 04/14/20 10:06 04/14/20 10:06 PT 11.0 Seconds (9.0-12.0) 04/14/20 10:06 INR 1.0 (0.9-1.1) 04/14/20 10:06 APTT 28.3 Seconds (21.0-31.0) 04/14/20 10:06 Blood Type A Positive 04/14/20 10:06 Antibody Screen NEGATIVE 04/14/20 10:06 Electrocardiogram Date: 04/14/20 Findings: + NSR @ (74) Chest X-Ray Date: 04/14/20 Findings: + NAD
[2020-04-14 10:27] LABS: Basophils # (auto) 0.04 K/uL (0-0.2); Basophils % (auto) 0.8 %; Eosinophils # (auto) 0.98 K/uL (0-0.5); Eosinophils % (auto) 20.1 %; Hematocrit (blood only) 43.7 % (42-52); Hemoglobin 15.3 g/dL (14.0-18.0); Immature Granulocytes # (auto) 0.01 K/uL (0.00-0.02); Immature Granulocytes % (auto) 0.2 %; Lymphocytes # (auto) 1.88 K/uL (1.2-3.4); Lymphocytes % (auto) 38.5 %; Mean Corpuscular Hemoglobin 31.9 pg (25-34); Mean Corpuscular Volume 91.2 fL (80-100); Mean Platelet Volume 11.2 fL (7.4-10.4); Monocytes # (auto) 0.29 K/uL (0.11-0.59); Monocytes % (auto) 5.9 %; Neutrophils # (auto) 1.68 K/uL (1.4-6.5); Neutrophils % (auto) 34.5 %; Platelet Count 236 K/uL (130-400); RDW Coefficient of Variation 12.4 % (11.5-14.5); Red Blood Count 4.79 M/uL (4.7-6.1); White Blood Count 4.88 K/uL (4.8-10.8)
--- NOTE | 2020-04-14 10:35 | XRay Report ---
XR chest Pre-admission PA/Lat CLINICAL HISTORY: PAT preoperative evaluation COMPARISON STUDY: No previous studies for comparison. FINDINGS: The bones soft tissues and hemidiaphragms are normal. The cardiomediastinal silhouette is n ormal. The lungs are clear. The pulmonary vasculature is normal. IMPRESSION: Negative chest. ACT 112: Negative or not required by law. The above report was generated using voice recognition software. It may contain grammatical, syntax or spelling errors. Electronically signed by: Randy Lagos M.D. 04/14/2020 10:34 AM
[2020-04-14 10:38] LABS: Partial Thromboplastin Time 28.3 Seconds (21.0-31.0)
[2020-04-14 11:00] LABS: BUN Creatinine Ratio 15.8 (10-20); Creatinine Clr Calc Pharmacy 73.1 ml/min; Est GFR (African American) 97.9; Est GFR (Non-African American) 84.5; Potassium 4.1 mmol/L (3.5-5.1)
[2020-04-14 11:08] LABS: C Reactive Protein 0.3 mg/dl (0-0.29)
--- NOTE | 2020-04-15 06:27 | Electrocardiogram Report ---
Test Reason : Blood Pressure : / mmHG Vent. Rate : 074 BPM Atrial Rate : 074 BPM P-R Int : 162 ms QRS Dur : 084 ms QT Int : 380 ms P-R-T Axes : 080 020 058 degrees QTc Int : 421 ms Normal sinus rhythm Normal ECG When compared with ECG of 06-FEB-2010 13:36, T wave inversion no longer evident in Inferior leads Confirmed by Freeman López ([id number]) on 04/15/2020 6:26:37 AM Referred By: Alon Maxwell Confirmed By:Freeman López
[~2020-05-11 08:45] MED LIST changes: +ACETAMINOPHEN 500 MG TAB PO SCH; +BUPIVACAINE 0.5 % 5 MG/1 ML PF 10ML VIAL ONE; +BUPIVACAINE LIPOSOME/PF 266 MG, BUPIVACAINE/EPINEPHRINE 50 ML, SODIUM CHLORIDE 0.9% 30 ... INFIL SCH; +CEFAZOLIN 2000MG 2,000 MG/15 ML SYR IV SCH; +EPINEPHrine INJ 1 MG/ML AMP ONE; +FAMOTIDINE 20 MG TAB PO SCH; +GABAPENTIN 600 MG DOSE PO SCH; +LR 500ML BOLUS, THEN 15ML/HR IV SCH; +LR 60ML/HR IV SCH; -LSNUNK; +ROPIVACAINE 0.5% 5 MG/ML 30 ML VIAL ONE; +TRANEXAMIC ACID 1,000 MG **IV Intra-op IV SCH
--- NOTE | 2020-05-11 09:04 | History & Physical Bridge Note ---
Date of Service May 11, 2020 History & Physical Bridge Note I have examined the patient, reviewed the History & Physical and in the interval since the performance of the History & Physical I have noted the following changes of clinical significance: no changes noted
[2020-05-11] MEDS ORDERED: LIDOCAINE HCL 2% 2 ML VIAL/AMP(20MG/ML) INFIL ONE (09:54)
[2020-05-11] MEDS ORDERED: PROPOFOL IV EMULSION 10 MG/ML 20 ML VIAL IV ONE ×3 (09:54→13:21)
[2020-05-11] MEDS ORDERED: MIDAZOLAM HCL 1 MG/ML 2ML VIAL ONE ×2 (09:55)
[2020-05-11] MEDS ORDERED: BACITRACIN INJ 50,000 UNIT VIAL ONE ×2 (10:58→13:38)
[2020-05-11] MEDS ORDERED: EPINEPHrine INJ 1 MG/ML AMP ONE (10:58)
[2020-05-11] MEDS ORDERED: VANCOMYCIN HCL 1000MG/20ML VIAL ONE (10:58)
[2020-05-11] MEDS ORDERED: BUPIVACAINE 0.5 % 5 MG/1 ML MPF 30ML VIAL ONE (10:58)
[2020-05-11] MEDS ORDERED: SODIUM CHLORIDE 0.9% PF 50 ML VIAL ONE (11:01)
[2020-05-11] MEDS ORDERED: BUPIVACAINE/EPINEPHRINE 0.25% 1:200,000 30 ML VIAL ONE (11:01)
[2020-05-11] MEDS ORDERED: BUPIVACAINE LIPOSOME 1.3% 266 MG/20 ML VIAL ONE (11:02)
[2020-05-11] MEDS ORDERED: ePHEDrine sulfate 50 MG/ML AMP IV PRN (11:32)
[2020-05-11] MEDS ORDERED: ATROPINE SULFATE 0.1 MG/ML 10ML SYR IV PRN (11:32)
[2020-05-11] MEDS ORDERED: CEFAZOLIN 250 MG/ML 1 GM VIAL ONE (14:03)
[2020-05-11] MEDS ORDERED: CEFAZOLIN 1000MG 1,000 MG/7.5 ML SYR IV ONE (14:08)
--- NOTE | 2020-05-11 14:17 | Post Operative Brief Note ---
PG Immediate Post Op with CF Date of Surgery May 11, 2020 Pre & Post Diagnosis Operation Date: 05/11/20 10:55 Pre-Op Diagnosis: Left Knee Degenerative Joint Disease S/P HTO, Knee Pain Post-Op Diagnosis: Left Knee Degenerative Joint Disease S/P HTO, Knee Pain I identified the patient and participated in the time-out.: Yes Procedure Operation Date: 05/11/20 10:55 Actual Procedures p Left Total Knee Arthroplasty, Cemented and Hardware Removal(Left) - Alon Maxwell MD Surgeon Alon Maxwell MD Television Maintenance Man Preeti, PAC Estimated Blood Loss 100 Findings Consistent with Post-Op Diagnosis Fluids 2500 cc Specimens Specimen Description: Permanent Specimen A: Left knee bone and tissue Drains [place] Catheter Anesthesia Type Spinal MAC Complications none Disposition Accompanied Patient To Recovery: No Disposition: Recovery Room
--- NOTE | 2020-05-11 15:26 | Anesthesiology Progress Note ---
Date of Service May 11, 2020 Anesthesia Post Procedure Vital Signs Vital Signs: Temp Pulse Resp BP Pulse Ox 05/11/20 15:10 75 16 111/72 97 05/11/20 15:00 70 14 108/74 97 05/11/20 14:50 82 14 104/68 98 05/11/20 14:40 84 22 106/66 96 05/11/20 14:30 84 24 104/69 99 05/11/20 14:23 36.1 C L 98 H 16 103/64 100 05/11/20 09:33 36.8 C 76 18 135/91 99 Pain Intensity Left Knee: Pain Intensity: 5 Transfer of Care Handoff Completed per policy Notes Mental Status: alert / awake / arousable Patient Amnestic to Procedure: Yes Nausea / Vomiting: adequately controlled Pain: adequately controlled Airway Patency, RR, SpO2: stable & adequate BP & HR: stable & adequate Hydration State: stable & adequate Neuraxial Anesthesia: was administered and sensory block is resolving Anesthetic Complications: no major complications apparent
[2020-05-11] MEDS ORDERED: ONDANSETRON INJ 2 MG/ML 2 ML VIAL IV PRN (15:38)
[2020-05-11] MEDS ORDERED: NALOXONE HCL 0.4 MG/1 ML VIAL/CARP IV PRN (15:38)
[2020-05-11] MEDS ORDERED: HYDROmorphone INJ 0.5 MG/0.5 ML SYR IV PRN (15:38)
[2020-05-11] MEDS ORDERED: TAMSULOSIN HCL 0.4 MG CAP PO PRN (15:38)
[2020-05-11] MEDS ORDERED: MAGNESIUM HYDROXIDE SUSP 30 ML UDC PO PRN (15:38)
[2020-05-11] MEDS ORDERED: bisacodyL 10 MG SUPP PR PRN (15:38)
[2020-05-11] MEDS ORDERED: ALUMINUM/MAGNESIUM SUSP 30 ML UDC PO PRN (15:38)
[2020-05-11] MEDS ORDERED: METOCLOPRAMIDE HCL INJ 5 MG/ML 2 ML VIAL IV PRN (15:38)
[2020-05-11] MEDS: Scopolamine CHECK PATCH PLACEMENT SCH (15:54)
[2020-05-11] MEDS: SODIUM CHLORIDE 0.9% 1000ML 1,000 ML IV SCH (15:54)
--- NOTE | 2020-05-11 16:01 | XRay Report ---
LEFT KNEE 2 VIEWS History: Left total knee arthroplasty. Degenerative arthritis. Postop. FINDINGS: The patient is status post a left total knee arthroplasty. The hardware is intact. No fract ure or dislocation. Skin edwina are in place. IMPRESSION: Left total knee arthroplasty. No evidence for hardware complication. ACT 112: Negative or not required by law. Electronically signed by: Juaquin Maher M.D. 05/11/2020 4:00 PM
[2020-05-11] MEDS: OXYCODONE HCL IR 5 MG TAB (IMMEDIATE RELEASE) PO PRN (16:38)
[2020-05-11] MEDS: FERROUS GLUCONATE 324 MG TAB PO SCH (16:48)
[2020-05-11] MEDS: KETOROLAC 30 MG/ML VIAL IV SCH ×2 (16:48→20:59)
[2020-05-11] MEDS: ASCORBIC ACID 500 MG TAB PO SCH (16:48)
--- NOTE | 2020-05-11 17:38 | Operative Report ---
Post Operative Report Pre & Post Diagnosis Operation Date: 05/11/20 10:55 Pre-Op Diagnosis: Left Knee Degenerative Joint Disease status post HTO, Knee Pain Post-Op Diagnosis: Left Knee Degenerative Joint Disease status post HTO, Knee Pain I identified the patient and participated in the time-out.: Yes Procedure Operation Date: 05/11/20 10:55 Actual Procedures p Left Total Knee Arthroplasty, Cemented and (Left) - Alon Maxwell MD s Hardware Removal(Left) - Alon Maxwell MD Surgeon Alon Maxwell MD School Bus Driver/Teacher Assistant Preeti, RAUL Estimated Blood Loss 100 Findings Consistent with Post-Op Diagnosis Operative findings revealed advanced left knee tricompartment DJD. He extensive grade 4 bone disease in all 3 compartments with extensive osteophytes in all 3 compartments. He had a very stiff knee with about a 15 degree flexion contracture and could only bend about 90 degrees. The high tibial osteotomy plate was prominent and sticking over the joint surface and had to be removed. Fluids 2500 cc. Specimens Left knee sent for pathology. Drains None. 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 He had a left knee arthroscopy done about 10 to 11 years ago and then about a year later had a high tibial osteotomy performed. Over the past 10 years he is developed increased pain discomfort deformity in his left knee. Is been through extensive conservative treatment which became less successful. He was markedly debilitated by his pain. His knee was unstable. He had a marked varus deformity. He elected proceed with surgical treatment. Description of Procedure Operative implants consist of: 1. Biomet Vanguard size 65 left posterior stabilized femoral component. 2. Biomet size 75 tibial tray with a 15 x 80 mm offset stem with a 2.5 mm offset and a small cruciate wing. 3. 12 mm posterior stabilized polyethylene insert. 4. 31 x 8 all poly-patella. Patient was taken to the operating room, identified, and placed on the operating table supine position. All contact areas were meticulously padded. A spinal anesthetic and abductor canal block had provided in the holding area. Hollingsworth catheter was placed in a sterile fashion. A left thigh turn was then placed. Left lower extremities and prepped and draped in usual sterile fashion. The left leg was elevated exsanguinated with use of an Esmarch and turns placed at 300 mmHg. An anterior approach to the left knee was then performed through a slightly curvilinear incision using his previous incision for the HTO and extend ing this proximally over the quad. Sharp dissection Through the subcutaneous tissue down to the extensor mechanism. A medial parapatellar arthrotomy incision was made. I did extensive dissection medially in order to expose the hardware as well as to release the medial side of his knee which was extremely tight. A synovectomy of the suprapatellar pouch and medial lateral gutters was performed. The fat pad was resected from each patella tendon. Lateral patellofemoral ligament was released and the patella was subluxated laterally. The knee was flexed. The osteophytes were taken off the distal femur. The ACL was absent. The PCL was released in the distal femur and the tibia subluxate anteriorly. I did release the medial and posterior medial semi-member gnosis tendon/attachment to the tibia in order to help again extension in his knee. Once adequate exposure was performed we elect to remove the hardware as it was prominent and would not be able to be left alone. Upon removing the L4 screws from the high tibial osteotomy plate, the screwdriver broke and 1 of the screws. We are able to remove 3 of the screws without difficulty. We had great difficulty removing the head of the screwdriver from inside the screw. We took a medical cutting device and drilled through this. However in doing so the screw itself was stripped. We were unable to remove this with the universal hardware removal tray so I did section this off from the remainder of the plate and then remove the plate from around the screw and then remove the screw with the universal hardware removal tray. The plate was removed without difficulty. Attention was then drawn toward proceeding with the remainder of the operation. The proximal tibia was exposed. The tibial eminence was excised. I then reamed the intramedullary canal up to a size 15. The IM cutting guide was placed and the proximal tibial cut was made to remove about a millimeter bone from most efficient aspect of the medial tibial plateau. This did take a fairly large piece off laterally. The tibia sized to a size 75. We then prepared the tibia for a 2.5 mm offset stem with a small cruciate wing. The tibia was assembled and placed and fit quite nicely. Attention drawn the femur. The distal femur was then with a sharp drop with intramedullary canal was suction. A left 6 degree valgus cutting guide was placed. Distal femoral cutting block was pinned in place. Distal femoral cut was made to take an additional 3 mm of bone off distal femur. The femur was then sized to a size 65. The AP cutting block was pinned parallel to the epicondylar axis which was 6 degrees of external rotation. The anterior cut, anterior chamfer, posterior cut, posterior chamfer cuts were made. Box cutting guide was placed in a just slight lateral and the box cut was made. The knee was flexed. The remnants of the medial lateral menisci were excised. The osteophytes were taken off the posterior aspect of the femur. The osteophytes posteriorly were fairly large. A trial femoral component was placed. I then trialed the knee and the 12 mm insert fit most appropriately. Attention drawn the patella. Patella was cleaned of all soft tissues. Patella thickness measured 23 mm in thickness was cut down to 14. Was sized to a size 31 patella. Locals were drilled for 31 patella. The lateral osteophyte was removed. Patella button was placed. Knee tracked nicely with a no thumbs test. Attention drawn to place the permanent components. All trial components were removed. A bone plug was placed in the distal femur to limit blood loss. A double batch Pal[place]os G cement was mixed with an additional gram of vancomycin due to his history of multiple surgeries on this knee. A Biomet Vanguard size 65 left posterior stabilized femoral component, a size 75 tibial tray with a 15 x 80 mm offset stem and a small cruciate wing, a 12 mm posterior box polyethylene insert, and a 31 x 8 all poly-patella were then cemented in place. Knee was brought out into full extension until cement hardened. Final cement check was then performed. The tourniquet was then let down for turn time 129 minutes. We did elect to leave the tourniquet up slightly longer than usual as the cement was curing and I wanted to maximize the strength of the cement. Hemostasis assured use electrocautery. I did inject locally with 100 cc of combination of 20 cc of Exparel, 30 cc normal saline, 50 cc of quarter percent Marcaine with epinephrine. Patient did receive 1 g of tranexamic acid. We then irrigated the wound again. The extensor mechanism then closed with combination 1 PDS suture #1 Vicryl suture in a [id number] fashion. Extensor mechanism checked found to be intact the subcutaneous tissue then closed with 2 Dexon suture in a buried interrupted fashion skin was closed skin edwina. Leg was then cleaned dried a sterile dressing composed Xeroform, 4 x 4's, sterile cast padding, Ludwig bandage were applied. Patient then transferr ed to the recovery room in stable condition. The patient tolerated the procedure well and there were no complications. Jaycob Álvarez, my physician clinical research assistant, was present for the entire procedure. His assistance was critical and essential to the proper patient positioning, prepping and draping, surgical exposure, performing the technical aspects of the operation, placement of the implants, closure of the wound, and placement of the sterile bandage. I attest to the content of the Intraoperative Record and any orders documented therein. Any exceptions are noted below.
[2020-05-11] MEDS ORDERED: TRANEXAMIC ACID / 0.7% NACL 1,000 MG/100 ML BAG IV SCH (20:30)
[2020-05-11] MEDS: CEFAZOLIN 1000MG 1,000 MG/7.5 ML SYR IV SCH (20:57)
[2020-05-11] MEDS: DOCUSATE SODIUM 100 MG CAP PO SCH (20:58)
[2020-05-11] MEDS: ASPIRIN 81 MG ECTAB PO SCH (20:58)
[2020-05-11] MEDS: SENNA 8.6 MG TAB PO SCH (20:58)
[2020-05-11] MEDS: ACETAMINOPHEN 500 MG TAB PO SCH (20:59)
[2020-05-12] MEDS: Scopolamine CHECK PATCH PLACEMENT SCH ×5 (00:05→23:16)
[2020-05-12] MEDS: SODIUM CHLORIDE 0.9% 1000ML 1,000 ML IV SCH (02:01)
[2020-05-12] MEDS: CEFAZOLIN 1000MG 1,000 MG/7.5 ML SYR IV SCH (04:40)
[2020-05-12] MEDS: KETOROLAC 30 MG/ML VIAL IV SCH ×4 (04:40→21:15)
[2020-05-12] MEDS: ACETAMINOPHEN 500 MG TAB PO SCH ×3 (04:41→21:16)
[2020-05-12 06:19] LABS: Hemoglobin 11.6 g/dL (14.0-18.0); Mean Corpuscular Hemoglobin 31.5 pg (25-34); Mean Corpuscular Hgb Conc 34.1 g/dL (32-36); Mean Corpuscular Volume 92.4 fL (80-100); Mean Platelet Volume 11.5 fL (7.4-10.4); Platelet Count 180 K/uL (130-400); RDW Coefficient of Variation 12.6 % (11.5-14.5); RDW Standard Deviation 42.8 fL (36.4-46.3); Red Blood Count 3.68 M/uL (4.7-6.1); White Blood Count 8.14 K/uL (4.8-10.8)
[2020-05-12 06:49] LABS: BUN Creatinine Ratio 14.7 (10-20); Calcium 8.1 mg/dl (8.5-10.1); Creatinine Clr Calc Pharmacy 75.1 ml/min; Est GFR (African American) 105.8; Est GFR (Non-African American) 91.3; Potassium 3.1 mmol/L (3.5-5.1)
[2020-05-12] MEDS ORDERED: POTASSIUM CHLORIDE 20 MEQ TABCR PO ONE ×2 (07:35→16:00)
--- NOTE | 2020-05-12 08:14 | Anesthesiology Progress Note ---
Date of Service May 12, 2020 Anesthesia Post Procedure Vital Signs Vital Signs: Temp Pulse Pulse Pulse Resp BP Pulse Ox 05/12/20 07:01 37.4 C 78 16 110/72 95 05/12/20 03:16 37.4 C 76 14 108/64 97 05/11/20 22:52 37.1 C 62 16 99/61 L 95 05/11/20 18:43 36.9 C 75 16 108/67 97 05/11/20 17:37 36.5 C 69 16 99/61 L 96 05/11/20 16:41 36.3 C L 93 H 18 145/92 H 92 05/11/20 16:07 36.6 C 80 16 123/74 98 05/11/20 15:39 36.4 C L 75 16 108/71 95 05/11/20 15:20 37.1 C 66 16 107/77 99 05/11/20 15:10 75 16 111/72 97 05/11/20 15:00 70 14 108/74 97 05/11/20 14:50 82 14 104/68 98 05/11/20 14:40 84 22 106/66 96 05/11/20 14:30 84 24 104/69 99 05/11/20 14:23 36.1 C L 98 H 16 103/64 100 05/11/20 09:33 36.8 C 76 18 135/91 99 Pain Intensity Left Knee: Pain Intensity: 3 Notes Mental Status: alert / awake / arousable and participated in evaluation Nausea / Vomiting: adequately controlled Pain: adequately controlled Airway Patency, RR, SpO2: stable & adequate BP & HR: stable & adequate Hydration State: stable & adequate Neuraxial Anesthesia: was administered and sensory block resolved Anesthetic Complications: no major complications apparent
[2020-05-12] MEDS: OXYCODONE HCL IR 5 MG TAB (IMMEDIATE RELEASE) PO PRN ×2 (08:32→18:56)
--- NOTE | 2020-05-12 08:32 | Progress Notes ---
DATE: 05/12/2020 SUBJECTIVE: A 60-year-old gentleman postop day 1 from left knee hardware removal and total knee arthroplasty. He is doing pretty well. Having some pain, but responding to the pain medicines. Had a reasonable night. No chest pain or shortness of breath. He is not feeling dizzy or lightheaded. OBJECTIVE: VITAL SIGNS: Temperature 37.4. Vital signs stable. GENERAL: Physical examination reveals a pleasant, middle-aged male. He is lying in bed, looks reasonably comfortable. EXTREMITIES: Examination of the left leg reveals the leg to be well aligned. Dressings are clean, dry and intact. He can dorsiflex and plantar flex his foot appropriately. NEUROLOGIC: He is neurologically intact. LABORATORY DATA: Hemoglobin 11.6. Hematocrit 34.0. Electrolytes are stable. Potassium is a bit low at 3.1. ASSESSMENT: A 60-year-old gentleman postop day 1 from left knee replacement, doing reasonably well. Pretty extensive surgery and seems to be doing okay with the pain pills. His potassium is a bit low and we will supplement that. PLAN: 1. DVT prophylaxis including thigh-high TEDs, SCDs, and aspirin twice a day. 2. PT/OT, weightbear as tolerated. Left total knee protocol. 3. Pain control. Doing okay with current pain regimen. 4. Hypokalemia. We will supplement his potassium today and check tomorrow. 5. Disposition. He will be discharged to home likely with some home health once medically stable and labs corrected.
[2020-05-12] MEDS: AMLODIPINE BESYLATE 5 MG TAB PO SCH (08:33)
[2020-05-12] MEDS: MULTIVITAMIN TAB PO SCH (08:34)
[2020-05-12] MEDS: DOCUSATE SODIUM 100 MG CAP PO SCH ×2 (08:34→21:15)
[2020-05-12] MEDS: ASCORBIC ACID 500 MG TAB PO SCH ×2 (08:34→16:36)
[2020-05-12] MEDS: ASPIRIN 81 MG ECTAB PO SCH ×2 (08:34→21:15)
[2020-05-12] MEDS: CHOLECALCIFEROL 1,000 UNITS 25 MCG TAB PO SCH (08:34)
[2020-05-12] MEDS: CHLORTHALIDONE 25 MG TAB PO SCH (08:34)
[2020-05-12] MEDS: FERROUS GLUCONATE 324 MG TAB PO SCH ×2 (08:34→16:36)
[2020-05-12] MEDS: SENNA 8.6 MG TAB PO SCH (21:14)
[2020-05-13] MEDS: OXYCODONE HCL IR 5 MG TAB (IMMEDIATE RELEASE) PO PRN (03:05)
[2020-05-13] MEDS: KETOROLAC 30 MG/ML VIAL IV SCH ×2 (03:05→09:13)
[2020-05-13] MEDS: ACETAMINOPHEN 500 MG TAB PO SCH (05:54)
[2020-05-13 06:47] LABS: Calcium 8.6 mg/dl (8.5-10.1); Creatinine Clr Calc Pharmacy 72.7 ml/min; Est GFR (African American) 101.7; Est GFR (Non-African American) 87.8; Potassium 3.5 mmol/L (3.5-5.1)
[2020-05-13] MEDS: AMLODIPINE BESYLATE 5 MG TAB PO SCH (07:38)
[2020-05-13] MEDS: MULTIVITAMIN TAB PO SCH (07:38)
[2020-05-13] MEDS: ASCORBIC ACID 500 MG TAB PO SCH (07:38)
[2020-05-13] MEDS: FERROUS GLUCONATE 324 MG TAB PO SCH (07:38)
[2020-05-13] MEDS: CHOLECALCIFEROL 1,000 UNITS 25 MCG TAB PO SCH (07:38)
[2020-05-13] MEDS: ASPIRIN 81 MG ECTAB PO SCH (07:39)
[2020-05-13] MEDS: CHLORTHALIDONE 25 MG TAB PO SCH (07:39)
[2020-05-13] MEDS: DOCUSATE SODIUM 100 MG CAP PO SCH (07:39)
[2020-05-13] MEDS: Scopolamine CHECK PATCH PLACEMENT SCH (07:39)
--- NOTE | 2020-05-13 08:54 | Progress Notes ---
DATE: 05/13/2020 SUBJECTIVE: A 60-year-old gentleman postop day 2 from a left total knee replacement, conversion from an HTO. He is doing pretty well this morning. Pain is improved. He feels more comfortable. No chest pain or shortness of breath. OBJECTIVE: VITAL SIGNS: Temperature 37.0. Vital signs stable. GENERAL: Shows a pleasant, middle-aged male. He is sitting up in bed, looks pretty comfortable. He is awake, alert and oriented. EXTREMITIES: Examination of the left leg reveals the dressing to be clean, dry and intact. Just a slight bit of bloody drainage inferiorly. He can dorsiflex and plantarflex his foot appropriately. He is neurologically intact. LABORATORY DATA: Potassium is improved at 3.5. ASSESSMENT: A 60-year-old gentleman postop day 2 from left knee replacement, doing well. His pain is controlled. Potassium is improved. PLAN: 1. DVT prophylaxis including thigh-high TEDs, SCDs, and aspirin twice a day. 2. PT/OT. Weight bear as tolerated. Left total knee protocol. 3. Pain control, doing pretty well with current pain regimen. 4. Hypokalemia. Potassium has been corrected. 5. Disposition: Plan to discharge to home with some home health likely later today.
--- NOTE | 2020-05-18 15:31 | Discharge Summary ---
Date of Service May 18, 2020 Admission HPI Per Admitting Provider Documented in the H & P Admission Exam (Per Admitting) Constitutional Documented in the H & P Discharge Data Consultations 05/11/20 15:38 Consult Case Management - Discharge Planning Routine Procedures Performed Operation Date: 05/11/20 10:55 Actual Procedures p Left Total Knee Arthroplasty, Cemented and (Left) - Alon Maxwell MD s Hardware Removal(Left) - Alon Maxwell MD Hospital Course (1) Status post total left knee replacement: This patient is a 60 year old male admitted on 05/11/20and underwent hardware removal and total knee arthroplasty. He tolerated the procedure well and there were no complications. Transferred to the PACU post op and later to the orthopedic floor for further care. He was given ancef for antibiotic prophylaxis. He was also given NICHOLAS stockings, SCDs, and aspirin for DVT prophylaxis. Hemoglobin, hematocrit, and vital signs were monitored during his hospital stay and remained stable. Did not require any blood transfusions. There were no complications during his hospital stay. By post op day #2 the patient was tolerating a regular diet, pain was reasonably controlled with oral pain medicine, and he was participating in physical therapy. On post op day #2 the patient was discharged home and set up with home health care. He was given printed discharge instructions including prescriptions for extra strength tylenol, aspirin, and oxycodone. Continue physical therapy, weight bearing as tolerated. Continue NICHOLAS stockings. Follow up approximately 2 weeks post op or sooner if there are problems or concerns. Coding Level of Care Code None Diagnoses Status post total left knee replacement Z96.652
== END 2020-05-13 10:13 | disposition home health service (06) ==
LOC: ASU 08:45 → 3E 08:45

== ENCOUNTER 2024-12-29 10:36 | Observation (INO) ==
--- NOTE | 2024-12-02 14:01 | PAT Medication Instructions ---
Medication Instructions Date of Service December 02, 2024 Home Medications Medication Instructions Recorded amoxicillin 500 mg tablet 2,000 mg (4 x 500 mg) PO ONCE #4 12/31/22 tabs amlodipine 5 mg tablet 5 mg PO QAM chlorthalidone 25 mg tablet 25 mg PO QAM cholecalciferol (vitamin D3) 25 mcg (1,000 unit) tablet (Vitamin D3) 25 mcg PO QAM amoxicillin 500 mg tablet 2,000 mg (4 x 500 mg) PO ONCE ascorbic acid (vitamin C) 500 mg tablet (Vitamin C) 500 mg PO QAM cyanocobalamin (vitamin B-12) 1,000 mcg tablet (Vitamin B-12) 1,000 mcg PO QAM Continue as directed amoxicillin 500 mg tablet 2,000 mg (4 x 500 mg) PO ONCE DO NOT take the morning of surgery chlorthalidone 25 mg tablet 25 mg PO QAM cholecalciferol (vitamin D3) 25 mcg (1,000 unit) tablet (Vitamin D3) 25 mcg PO QAM ascorbic acid (vitamin C) 500 mg tablet (Vitamin C) 500 mg PO QAM cyanocobalamin (vitamin B-12) 1,000 mcg tablet (Vitamin B-12) 1,000 mcg PO QAM Take morning of surgery With a small sip of water, OTHERWISE NOTHING TO EAT OR DRINK AFTER MIDNIGHT: amlodipine 5 mg tablet 5 mg PO QAM Other Notes If you have any questions please call us at [phone] or [phone] or [phone] or [phone]
--- NOTE | 2024-12-11 12:04 | Anesthesiology Consultation ---
Date of Service December 11, 2024 Assessment & Plan (1) Encounter for pre-operative examination: Chart Review Chart Review: Acceptable Risk for Surgery and Patient seen in Pre Admission Testing Pt currently scheduled as 23 hours observation. If surgeon decides to change patient to Same Day Joint, patient would be acceptable risk for TKA, pending patient is motivated, has good support and surgeon's office completes [facility] Program preop requirements. Per PAT appt on 12/11/24, no recent illness/disease exposures, illness related symptoms, or recent illness/disease positive tests. Will leave to surgeon's discretion if preop Covid testing needed Right open hernia repair 09/13/20= Done under [facility] with Grade 2 view with MAC #3. ETT #7.5. Left TKA with hardware removal 05/11/20= Done under [facility] at L3-4 with 4 attempts Teaching & Discussion Pre-Anesthesia Teaching/Discussion Notes: Instructed NPO after midnight before surgery,except medications with 15 cc of water. Medication instructions provided according to the PAT guidelines. History Surgery Operation Date: 12/29/24 10:40 Proposed Procedures p Right Total Knee Arthroplasty - Alon Maxwell MD Height/Weight Height: 5 ft 5 in Weight: 73.9 kg Allergies Allergy/AdvReac Type Severity Reaction Status Date / Time No Known Allergies Allergy Verified 12/02/24 12:19 Medications Home Medications Medication Instructions Recorded Confirmed Last Taken amlodipine 5 mg tablet 5 mg PO QAM 08/10/19 12/02/24 01/30/21 chlorthalidone 25 mg tablet 25 mg PO QAM 11/21/19 12/02/24 01/30/21 cholecalciferol (vitamin D3) 25 25 mcg PO QAM 04/07/20 12/02/24 01/30/21 mcg (1,000 unit) tablet (Vitamin D3) amoxicillin 500 mg tablet 2,000 mg (4 x 500 mg) PO ONCE #4 12/31/22 12/02/24 Unknown tabs ascorbic acid (vitamin C) 500 mg 500 mg PO QAM 12/02/24 12/02/24 Unknown tablet (Vitamin C) cyanocobalamin (vitamin B-12) 1,000 mcg PO QAM 12/02/24 12/02/24 Unknown 1,000 mcg tablet (Vitamin B-12) Past Medical History Medical History Borderline high cholesterol no medications - monitoring with pcp History of COVID-19 ~2022: mild symptoms. no hospitalization. resolved. Hypertension Osteoarthritis Exercise / Class Metabolic Activity II 4-5 Yardwork/Stairs/Walk up hill (one flight of stairs - no chest pain or SOB ) Past Family History Family History Other No family history of adverse response to anesthesia No significant family history Past Surgical History Surgical History H/O right inguinal hernia repair (09/13/20) Laparoscopic, convert to Open Repair of Right Inguinal Hernia Dr. Harp 09/13/20 History of arthroscopic knee surgery LEFT History of cataract surgery bilateral History of colonoscopy History of detached retina repair Right eye (~2022) History of left inguinal hernia repair 11/2019 History of left knee replacement History of tooth extraction S/P right knee arthroscopy Status post osteotomy HX - left knee Past Anesthesia History No Hx of Anesthesia Complications and No Family Hx of Anesthesia Complications History of PONV No Hx of PONV and No Hx of Motion Sickness Social History Smoking Status: Never smoker Do You Dip or Chew Tobacco: No Hx Alcohol Use: Yes Alcohol type: beer and wine alcohol intake frequency: a few times a week Hx Substance Use: No substance use type: does not use Review of Systems Patient denies chest pain, shortness of breath, dyspnea on exertion, reflux, cough, wheezing, palpitations. No hx of seizures, stroke, DC, apnea/snoring. No hx of blood clots or blood transfusions Physical Exam Vital Signs VITALS BP 112/68 P 85 TEMP 98.2 SP02 97% RESP 16 Constitutional no acute distress ENMT Mouth: no TMJ clicking Thyromental Distance: > or= 3.5 Finger Breadths (3.5) Mallampati Class: III Neck neck extension not limited Respiratory normal respiratory effort; no respiratory distress Auscultation: lungs clear to auscultation bilaterally; no wheezes Cardiovascular Rate/Rhythm: regular rate and regular rhythm Heart Sounds: no murmur Vessels: no carotid bruit Musculoskeletal Spine: no pain with cervical ROM Extremities: extremities normal to inspection Psychiatric Orientation: alert Lab Results Anesthesia Preop Results Results Anesthesia Widget: WBC 6.61 K/ul (4.8-10.8) 12/11/24 Hgb 14.8 g/dl (14.0-18.0) 12/11/24 Hct 41.8 % (42.0-52.0) L 12/11/24 Plt 216 K/uL (130-400) 12/11/24 Na 140 mmol/L (136-145) 12/11/24 K 3.3 mmol/L (3.5-5.1) L 12/11/24 Cl 101 mmol/L (98-107) 12/11/24 CO2 33 mmol/L (21-32) H 12/11/24 BUN 18 mg/dl (6-23) 12/11/24 Creat 1.04 mg/dl (0.6-1.4) 12/11/24 Glucose Level 88 mg/dl (70-99(Fasting)) 12/11/24 PT 11.3 Seconds (9.0-12.0) 12/11/24 PTT 29 Seconds (21-31) 12/11/24 INR 1.0 (0.9-1.1) 12/11/24 Blood Type A Positive 12/11/24 Antibody Screen NEGATIVE 12/11/24 Testing Electrocardiogram Date: 12/11/24 SR at 80bpm PACs Otherwise normal EKG per cardio Chest X-Ray Date: 12/11/24 FINDINGS: Heart size and pulmonary vasculature are normal. No effusion or consolidation. Stable mild scoliosis.
[~2024-12-29 10:36] MED LIST changes: -ACETAMINOPHEN 500 MG TAB PO SCH; +BUPIVACAINE 0.25% PF 30 ML VIAL ONE; -BUPIVACAINE LIPOSOME/PF 266 MG, BUPIVACAINE/EPINEPHRINE 50 ML, SODIUM CHLORIDE 0.9% 30 ... INFIL SCH; -CEFAZOLIN 2000MG 2,000 MG/15 ML SYR IV SCH; -EPINEPHrine INJ 1 MG/ML AMP ONE; -FAMOTIDINE 20 MG TAB PO SCH; -GABAPENTIN 600 MG DOSE PO SCH; -LR 500ML BOLUS, THEN 15ML/HR IV SCH; -LR 60ML/HR IV SCH; -ROPIVACAINE 0.5% 5 MG/ML 30 ML VIAL ONE; -TRANEXAMIC ACID 1,000 MG **IV Intra-op IV SCH
--- NOTE | 2024-12-29 10:45 | History & Physical Bridge Note ---
Date of Service December 29, 2024 History & Physical Bridge Note I have examined the patient, reviewed the History & Physical and in the interval since the performance of the History & Physical I have noted the following changes of clinical significance: no changes noted
[2024-12-29] MEDS: ACETAMINOPHEN 500 MG TAB PO SCH ×2 (11:10→20:24)
[2024-12-29] MEDS: dexAMETHasone**PF** 10 MG/ML VIAL IV SCH (11:11)
[2024-12-29] MEDS: FAMOTIDINE 20 MG TAB PO SCH (11:11)
[2024-12-29] MEDS: CeleBREX 200 MG CAP PO SCH (11:11)
[2024-12-29] MEDS: METOCLOPRAMIDE HCL 10 MG TABLET PO SCH (11:11)
[2024-12-29] MEDS: LR 500ML BOLUS, THEN 15ML/HR IV SCH (11:12)
[2024-12-29] MEDS: LR 60ML/HR IV SCH (11:12)
[2024-12-29] MEDS ORDERED: ATROPINE SULFATE 0.1 MG/ML 10ML SYR IV PRN (11:41)
[2024-12-29] MEDS ORDERED: PROMETHAZINE HCL 6.25 MG in SODIUM CHLORIDE 0.9% 50 ML IV PRN (11:41)
[2024-12-29] MEDS ORDERED: ONDANSETRON INJ 2 MG/ML 2 ML VIAL IV PRN ×2 (11:41→16:25)
[2024-12-29] MEDS ORDERED: ePHEDrine sulfate 50 MG/ML AMP IV PRN (11:41)
[2024-12-29] MEDS ORDERED: MIDAZOLAM HCL 1 MG/ML 2ML VIAL ONE (12:07)
[2024-12-29] MEDS ORDERED: PROPOFOL IV EMULSION 10 MG/ML 20 ML VIAL IV ONE (12:10)
[2024-12-29] MEDS ORDERED: fentaNYL citrate PF 100 MCG/2 ML VIAL ONE (13:02)
[2024-12-29] MEDS: ceFAZolin 2000MG 2,000 MG/15 ML SYR IV SCH (13:25)
[2024-12-29] MEDS ORDERED: HYDROmorphone INJ 2 MG/ML SYR/VIAL ONE (13:42)
[2024-12-29] MEDS: ROPIV 0.5% 246mg, Ketorolac 30mg, EPINEPHrine 0.5mg in NSS INFIL SCH (13:58)
[2024-12-29] MEDS: ORTHO JOINT ANESTHETIC ONE (13:59)
[2024-12-29] MEDS ORDERED: GLYCOPYRROLATE 0.2 MG/ML VIAL ONE (14:23)
[2024-12-29] MEDS: TRANEXAMIC ACID 1,000 MG **IV Intra-op IV SCH (14:25)
[2024-12-29] MEDS ORDERED: LIDOCAINE 2% 2 ML VIAL/AMP(20MG/ML) INFIL ONE (14:26)
--- NOTE | 2024-12-29 15:16 | Operative Report ---
PG Post Operative Report Pre & Post Diagnosis Operation Date: 12/29/24 12:30 Pre-Op Diagnosis: Right Knee Osteoarthritis Post-Op Diagnosis: Right Knee Osteoarthritis I identified the patient and participated in the time-out.: Yes Procedure Operation Date: 12/29/24 12:30 Actual Procedures p Right Total Knee Arthroplasty(Right) - Alon Maxwell MD Surgeon Alon Maxwell MD Office Assistance Jaycob Álvarez PA-C Estimated Blood Loss 50 Findings Consistent with Post-Op Diagnosis Operative findings revealed advanced right knee tricompartment DJD. He had a very large serous effusion. He had extensive grade 4 disease with extensive scarring of the soft tissues throughout his knee. Pretty extensive synovitis as well. Specimens Right knee sent for pathology. Anesthesia Type General Regional Complications none Disposition Accompanied Patient To Recovery: No Indications Patient is a 64-year-old male who has had a long history of knee problems. He has undergone left knee surgery over multiple years and most recently a total knee replacement 4 and half years ago. He said well from this. Over the past several years he developed increased pain discomfort and recurrent swelling in his right knee. Failed conservative treatment. He elects proceed with total knee arthroplasty. Description of Procedure Operative implants consists of: 1. Biomet Vanguard size 65 right posterior stabilized femoral component. 2. Biomet size 71 tibial tray. 3. 10 mm posterior stabilized polyethylene insert. 4. 34 x 8-1/2 all poly patella. The patient was taken to the operating, identified, placed on the operating table in the supine position. All conductors were appropriately padded. IV antibiotics fibra anesthesia team. Spinal anesthetic and been attempted in the holding area. This was unsuccessful. An adductor canal block was provided. A general anesthetic was therefore implemented. The right thigh tent was then placed. The right lower extremity was then prepped and draped in usual sterile fashion. The right leg was elevated and exsanguinated with use of an Esmarch and a turn was placed at 300 mmHg. An anterior approach of the right knee was then p erformed to longitudinal incision centered over the patella. Sharp dissection was carried through subcutaneous tissue down the extensor mechanism. A medial parapatellar arthrotomy incision was made. Some subperiosteal dissection was carried out medially. The fat pad was resected from Neath patella tendon. The lateral patellofemoral ligament was released. I did do a pretty extensive synovectomy as the synovitis was pretty intense and thickened. The patella subluxate laterally and the knee was flexed. The osteophytes taken off distal femur. The ACL and PCL were then released from the distal femur and the tibia subluxated anteriorly. The external tibial alignment jig was then placed on the anterior face of the tibia and adjusted 14 mm medially. The proximal tibial cut was made. Take about 2 mm of bone off the medial side. Tibia sized to a size 71. Attention drawn the femur. The distal femur was entered with a sharp drill. Intramedullary canal was suction. A right 6 degree valgus cutting guide was placed. The distal femoral cut was then made to take an additional 3 mm of bone off distal femur. The femur was then sized to a size 65. The AP cutting block was pinned parallel to the epicondylar axis which was 3 degrees of external rotation. The anterior cut, anterior chamfer, posterior cut, posterior chamfer cuts were made. The box cutting guide was placed and adjusted slightly lateral and the box cut was made. The knee was flexed. The remnants of the medial lateral menisci were excised. The osteophytes taken off the posterior aspect of the femur. A trial femoral component was placed. The tibial tray was pinned in Shamika external rotation and the drill and stem punch were used to create defect in proximal tibia for the tibial tray. The knee was then trialed and the 10 mm insert fit most appropriately. Attention drawn the patella. The patella was cleaned of all soft tissues. Patella thickness measured about 19 mm in thickness was cut down to 13. The size of a size 34 patella. The lug holes were drilled for 34 patella. The lateral osteophytes removed. Patella button was placed. Knee was taken through range of motion and the patella tra cked nicely with no thumbs test. Attention then drawn to place the permanent components. All trial components were removed. Bone plug was placed in the distal femur limit blood loss. Double batch of Palacos G cement was mixed. A Biomet Vanguard size 65 right posterior stabilized femoral component, size 71 tibial tray, a 10 mm posterior stabilized polyethylene insert, and a 34 x 8 and half all poly patella then cemented in place. The knee was brought out into full extension till cement hardened. Final cement check was then performed. Pericapsular tissues were injected with total of 100 cc of Ortho mix. Patient did receive 1 g of tranexamic acid. The tourniquet was then let down for final tourniquet time 58 minutes. Hemostasis assured with electrocautery. Extensor Meclomen then closed with combination 1 PDS suture #1 Vicryl suture in a [id number] fashion. Extensor Meclomen checked found to be intact. Subcutaneous tissue then closed with 2 Dexon suture in a buried interrupted fashion skin was closed skin edwina. Leg was then cleaned and dried and a sterile dressing with Xeroform, 4 fours, sterile cast padding, Ludwig bandage were applied. Patient then transferred to the recovery room in stable condition. Patient tolerated procedure well and there were no complications. Jaycob Álvarez, my physician medical assistant float, was present for the entire procedure. His assistance was essential and required for appropriate patient positioning, prepping and draping, surgical exposure, performing the technical details of the operation, placement the implants, closure of the wound, and placement of the sterile bandage. I attest to the content of the Intraoperative Record and any orders documented therein. Any exceptions are noted below.
--- NOTE | 2024-12-29 15:27 | Anesthesiology Progress Note ---
Date of Service December 29, 2024 Anesthesia Post Procedure Vital Signs Vital Signs: Temp Pulse Resp BP Pulse Ox O2 Del Method 12/29/24 10:48 36.7 C 95 H 18 127/81 96 Room Air Transfer of Care Handoff Completed per policy Notes Mental Status: alert / awake / arousable and participated in evaluation Patient Amnestic to Procedure: Yes Nausea / Vomiting: adequately controlled Pain: adequately controlled Airway Patency, RR, SpO2: stable & adequate BP & HR: stable & adequate Hydration State: stable & adequate Anesthetic Complications: no major complications apparent and Pt Satisfied with anesthetic care
[2024-12-29] MEDS: fentaNYL citrate PF 100 MCG/2 ML VIAL IV PRN (15:39)
--- NOTE | 2024-12-29 15:44 | XRay Report ---
XR knee RT 1 or 2V routine HISTORY: 64 years-old Male Surgical Post Op right knee arthroplasty COMPARISON: Radiographs September 21, 2024 TECHNIQUE: 2 views of the right knee FINDINGS: Total joint arthroplasty with patellar resurfacing. Anterior midline skin edwina with expected posto perative soft tissue swelling and deep tissue air. IMPRESSION: Total joint arthroplasty with expected postoperative changes. ACT 112: Negative or not required by law. The above report was generated using voice recognition software. It may contain grammatical, syntax o r spelling errors. Electronically signed by: Jr Leahy M.D. 12/29/2024 3:42 PM
[2024-12-29] MEDS ORDERED: METOCLOPRAMIDE HCL INJ 5 MG/ML 2 ML VIAL IV PRN (16:25)
[2024-12-29] MEDS ORDERED: HYDROmorphone INJ 0.5 MG/0.5 ML SYR IV PRN (16:25)
[2024-12-29] MEDS ORDERED: oxyCODONE HCL IR 5 MG TAB (IMMEDIATE RELEASE) PO PRN (16:25)
[2024-12-29] MEDS ORDERED: MAGNESIUM HYDROXIDE SUSP 30 ML UDC PO PRN (16:25)
[2024-12-29] MEDS ORDERED: ALUMINUM/MAGNESIUM SUSP 30 ML UDC PO PRN (16:25)
[2024-12-29] MEDS ORDERED: NALOXONE HCL 0.4 MG/1 ML VIAL/CARP IV PRN (16:25)
[2024-12-29] MEDS ORDERED: bisacodyL 10 MG SUPP PR PRN (16:25)
[2024-12-29] MEDS: KETOROLAC 30 MG/ML VIAL IV SCH (17:21)
[2024-12-29] MEDS: ASPIRIN 81 MG ECTAB PO SCH (20:24)
[2024-12-29] MEDS: SENNA 8.6 MG TAB PO SCH ×2 (20:24→20:26)
[2024-12-29] MEDS: DOCUSATE SODIUM 100 MG CAP PO SCH (20:24)
[2024-12-29] MEDS: TRANEXAMIC ACID / 0.7% NACL 1,000 MG/100 ML BAG IV SCH (20:26)
[2024-12-29] MEDS: ceFAZolin 1000MG 1,000 MG/7.5 ML SYR IV SCH (20:26)
[2024-12-30 07:28] VITALS: RESP 20; TEMP 98.1; O2SAT 99
[2024-12-30 07:42] LABS: Hematocrit (blood only) 35.3 % (42.0-52.0); Hemoglobin 12.3 g/dl (14.0-18.0); Mean Corpuscular Hemoglobin 31.6 pg (25.0-34.0); Mean Corpuscular Hgb Conc 34.8 g/dL (32.0-36.0); Mean Corpuscular Volume 90.7 fL (80.0-100.0); Platelet Count 215 K/uL (130-400); RDW Standard Deviation 39.9 fL (36.4-46.3); Red Blood Count 3.89 M/uL (4.70-6.10); White Blood Count 11.62 K/ul (4.8-10.8)
[2024-12-30 08:10] LABS: Potassium 3.3 mmol/L (3.5-5.1)
[2024-12-30 08:11] LABS: BUN Creatinine Ratio 15.7 (10-20); Calcium 8.5 mg/dl (8.6-10.3); Creatinine Clr Calc Pharmacy 63.6 ml/min
[2024-12-30 08:26] VITALS: BP 110/66; PULSE 75
[2024-12-30] MEDS: dexAMETHasone 10 MG in SYRINGE 0 ML IV SCH (08:27)
[2024-12-30] MEDS: ASCORBIC ACID 500 MG TAB PO SCH (08:33)
[2024-12-30] MEDS: CYANOCOBALAMIN (B-12) 500 MCG TABLET PO SCH (08:33)
[2024-12-30] MEDS: TAMSULOSIN HCL 0.4 MG CAP PO SCH (08:33)
[2024-12-30] MEDS: MULTIVITAMIN TAB PO SCH (08:34)
[2024-12-30] MEDS: CHOLECALCIFEROL 25 MCG (1000 UNITS) TAB PO SCH (08:34)
[2024-12-30] MEDS: amLODIPine BESYLATE 5 MG TAB PO SCH (08:34)
[2024-12-30] MEDS: CHLORTHALIDONE 25 MG TAB PO SCH (08:38)
--- NOTE | 2024-12-30 09:45 | Orthopedic Progress Note ---
Date of Service December 30, 2024 Assessment & Plan (1) Status post right knee replacement: Assessment: Status post right total knee arthroplasty. Plan: Overall, he is doing quite well today with good pain control of the right knee. He will work with physical therapy later this morning to work on ambulation and range of motion exercises. He was started on aspirin for DVT prophylaxis. He can be discharged home later this morning pending formal physical therapy evaluation recommendations. His dressings will be changed with the assistance of home health upon discharge. He was able to pick up man all of his medications from pharmacy and has no questions or concerns with them. He will follow-up with Dr. Maxwell 2 to 3 weeks for continued postoperative management or sooner if needed. Subjective .Gavino was seen this morning resting comfortably in no apparent distress. He notes that his pain is well-controlled to the right knee. He has been up and out of bed with no significant issues. He has yet to work physical therapy this morning. He denies any concerns with his surgical incision site. Denies any active bleeding, discharge, or signs infection. He denies any other concerns today. Review of Systems All systems reviewed & are unremarkable except as noted in HPI & below. Physical Exam . On physical examination of the right knee, dressings are clean, dry, intact with no signs of active bleeding, discharge, or signs of infection. His leg is on full extension. He has limited range of motion strength in all planes secondary to postoperative stiffness soreness. Calf soft nontender to palpation. Negative Homans' sign. Intact plantarflexion dorsiflexion of the right ankle. +2 DP and PT pulses. Less than 2-second capillary refill. Normal sensation. Neurovascular intact. Results & Data Results & Data Laboratory Results . Diagnostic Findings . Knee X-Ray 12/29/24 15:09 XR knee RT 1 or 2V routine HISTORY: 64 years-old Male Surgical Post Op right knee arthroplasty COMPARISON: Radiographs September 21, 2024 TECHNIQUE: 2 views of the right knee FINDINGS: Total joint arthroplasty with patellar resurfacing. Anterior midline skin edwina with expected postoperative soft tissue swelling and deep tissue air. IMPRESSION: Total joint arthroplasty with expected postoperative changes. ACT 112: Negative or not required by law. The above report was generated using voice recognition software. It may contain grammatical, syntax or spelling errors. Electronically signed by: Jr Leahy M.D. 12/29/2024 3:42 PM PG Care Time/CCT Total # of Minutes Spent Total Time Spent with Patient: Total time spent is greater than 50% in coordination of care (as documented) at patient's floor/unit and/or counseling patient: Coding Level of Care Code 41396 Post Operative Follow-Up Diagnoses Status post right knee replacement Z96.651
--- NOTE | 2024-12-30 09:46 | Discharge Summary ---
Date of Service December 30, 2024 Principal Diagnosis Same as "Discharge Diagnosis" noted below under Discharge Instructions. Discharge Exam . On physical examination of the right knee, dressings are clean, dry, intact with no signs of active bleeding, discharge, or signs of infection. His leg is on full extension. He has limited range of motion strength in all planes secondary to postoperative stiffness soreness. Calf soft nontender to palpation. Negati ve Homans' sign. Intact plantarflexion dorsiflexion of the right ankle. +2 DP and PT pulses. Less than 2-second capillary refill. Normal sensation. Neurovascular intact. Discharge Data Procedures Performed Operation Date: 12/29/24 12:30 Actual Procedures p Right Total Knee Arthroplasty(Right) - Alon Maxwell MD Ordered Studies 12/29/24 05:00 US - OR guided needle placemen Routine Hospital Course (1) Status post right knee replacement: On December 29, 2024 Yaw arrived at [facility] and underwent a right total knee arthroplasty performed by Dr. Maxwell with no complications. He had a general anesthetic. Postoperatively, he was started on aspirin for DVT prophylaxis and transferred to the general orthopedic floor in stable condition. His hospital course was uneventful. On postoperative day #1, his vital signs were stable and his pain was well-controlled. He participated well physical therapy working on ambulation range of motion exercises. He was then discharged home in stable condition. He will follow-up with Dr. Maxwell in 2 to 3 weeks for continued postoperative management or sooner if needed. PG Care Time/CCT Total # of Minutes Spent Total Time Spent with Patient: Total time spent is greater than 50% in coordination of care (as documented) at patient's floor/unit and/or counseling patient: Discharge Plan Discharge Items Patient Disposition: Home - Home Health Services Reason For Visit: Right Knee Osteoarthritis Discharge Diagnosis: Right Knee Replacement Activity: Per Instructions section Non-emergency contact: Surgeon Call non-emergency contact if: you have any medication questions Follow-up/Referrals: Popeye Fisher MD [Primary Care Provider] - Diet: Regular Addtl Attending Provider Instructions: ACTIVITY RECOMMENDATIONS: Diet: * You may resume previous diet. Physical Therapy: * You will go to physical therapy three times each week for four to six weeks after your surgery in order to regain your knee range of motion and to retrain you r knee to work properly. * It is just as important to make sure you are getting your knee perfectly straight as it is to regain your knee bend. * Taking a pain pill an hour before therapy can help you have a more productive and comfortable therapy session. Home Exercise: * You were shown a series of exercises (heel props, heel slides, etc.) in the hospital. Do these exercises three to four times each day including the exercises you were shown in physical therapy. Walking: * Get up and walk several times each day. For the first four weeks, try not to stand or walk for more than one hour at a time. If you do stand or walk for more than one hour, you will not hurt anything, but your knee and leg will likely swell. * As you feel comfortable, you may change from the walker or crutches to a cane and then to independent walking. MEDICATIONS: New Medicine: * You will likely be taking one or more of these medications: 1. Oxycodone - A quick and shorter-acting pain medication. Take one to two tablets every six hours to lessen your pain. 2. Aspirin - Thins your blood to lessen the chance of forming a blood clot. * The most common side effects of pain medicine and iron are nausea and constipation. If nausea or constipation is too much of a problem or if you have any questions about your new medicines or doses, call [facility] at . We will try to help you manage these issues. "VERY IMPORTANT TO READ AND REVIEW" Pain: * The immediate post-operative period after knee replacement surgery is often quite painful. * You are given a prescription for pain medicine. You should take it, as directed, when you need it, especially before physical therapy and before going to bed. Pain that interferes with sleep is very common and can last several months. * You will likely need pain medicine for the first four to six weeks. It will not stop all of the pain. The pain will lessen and as you feel better, you may change to milder pain medicine such as Tylenol. * The most common side effects of pain medicine are nausea and constipation, so don't take more than you need. SPECIAL CARE INSTRUCTIONS: TEDs/Elastic Stockings: * The white elastic stockings help limit swelling and prevent blood clots from forming in your legs. The more you wear them, the more they work. * Wear them for six weeks after knee replacement surgery and four weeks after partial knee replacement. Incision Site Care: * Remove dressing postoperative day 2 and then shower. Keep direct shower pressure off the incision site. * After showering, cover edwina with dry gauze and change daily or more frequently if the dressing is getting saturated with drainage. * Use the NICHOLAS stockings to hold dressing in place. DO NOT apply tape on the skin. * May completely stop using bandage if wound is dry and no drainage * [place] are removed between 2 and 3 weeks post-op. If your follow-up appointment is made before 2 weeks, please have your appointment re- scheduled. It is too early to remove the edwina. Prevention of Infection: * Take antibiotics one hour before any dental cleaning, dental work, urological procedure, gastrointestinal procedure or any invasive surgery in order to prevent your new joint from getting infected. * You may get the antibiotics from the doctor performing the procedure or you may call our office at [phone] before and we will call in a prescription to the pharmacy of your choice. Things to Watch For: * Drainage from the incision site that occurs more than one week after your surgery. * Severely increased knee/leg pain or swelling. * Increased redness at the incision site. * Fever above 102 degrees Fahrenheit. * Unusual chest pain or shortness of breath. * Unusual pain or burning with urination. Call [facility] at [phone] with any of the above problems or if you have any questions about your medicines or recovery. FOLLOW UP VISIT: Make an appointment to see your doctor for approximately two weeks after surgery for a progress check and staple removal by calling the office at [phone]. Pending Studies at Discharge: No Stand-Alone Forms: My [facility], Smoking Cessation Medications and DC Order Prescriptions: Continued amoxicillin 500 mg tablet 2,000 mg PO ONCE Qty: 4 2RF Rx Instructions: TAKE 4 TABLETS ONE HOUR PRIOR TO DENTAL WORK sennosides [Senokot] 8.6 mg tablet 8.6 mg PO BID 14 Days Qty: 28 0RF Rx Instructions: Take two times a day to prevent/treat constipation aspirin [Tonia Low Dose Aspirin] 81 mg tablet,delayed release (DR/EC) 81 mg PO BID 45 Days Qty: 90 0RF Rx Instructions: Take to prevent blood clots. acetaminophen [Tylenol Extra Strength] 500 mg tablet 1,000 mg PO TID 30 Days Qty: 180 0RF Rx Instructions: Take 3 times per day to lessen pain. ketorolac 10 mg tablet 10 mg PO Q6 5 Days Qty: 20 0RF Rx Instructions: Take 4 times per day with food for 5 days to lessen pain and swelling. ondansetron 4 mg tablet,disintegrating 4 mg PO Q8 PRN (Reason: nausea) Qty: 20 1RF Rx Instructions: Take as needed for nausea oxycodone 5 mg tablet 5 - 10 mg PO Q6 PRN (Reason: pain) Qty: 40 0RF Rx Instructions: Take as needed for pain cefadroxil 500 mg capsule 500 mg PO BID 7 Days Qty: 14 0RF Rx Instructions: Take 1 cap twice a day to prevent infection tamsulosin [Flomax] 0.4 mg capsule 0.4 mg PO DAILY Qty: 7 0RF Rx Instructions: Begin night BEFORE surgery to prevent urinary retention amlodipine 5 mg tablet 5 mg PO QAM chlorthalidone 25 mg tablet 25 mg PO QAM cholecalciferol (vitamin D3) [Vitamin D3] 25 mcg (1,000 unit) Tablet 25 mcg PO QAM cyanocobalamin (vitamin B-12) [Vitamin B-12] 1,000 mcg Tablet 1,000 mcg PO QAM ascorbic acid (vitamin C) [Vitamin C] 500 mg Tablet 500 mg PO QAM Admission Data Admit Date/Time: 12/29/24 15:09 Attending Provider: Alon Maxwell Admit Provider: Alon Maxwell Primary Care Provider: Popeye Fisher
== END 2024-12-30 13:42 | disposition home health service (06) ==
LOC: ASU 10:36 → 3E 10:36